=== PATIENT | male | born 1950 | race Caucasian/White ===

== ENCOUNTER 2017-08-10 13:31 | Outpatient (RCR) | payer MEDICARE, OTHER ==
[2015-06-18 13:05] VITALS: BMI 23.0
[~2017-08-10 13:31] MED LIST: ASPI-757 PO; ASPI-879 PO; CALC-515 PO; DOCU-416 PO; ESOM40CA42 PO; FOLI-68 PO; IBUP200C71 PO; LOR5/325 PO; MULT-1335 PO; MULT1TAB64 PO; NO ROUTINE MEDS; OXYB10TA21 PO; OXYB5TAB86 PO; OXYC-865 PO; PHEN200T32 PO
[2017-08-14] MEDS ORDERED: IOPAMIDOL 76% 100 ML INFUS BTL 100 ML ONE (10:54)
[2017-08-14] MEDS ORDERED: NS 0.9% 150 ML BAG 150 ML ONE (11:11)
--- NOTE | 2017-08-14 13:57 | RADIOLOGY IMAGING REPORT ---
FACILITY: [facility] - [place] PATIENT NAME: Paul Sheridan : 1950 MR: [id number] V: [id number] EXAM DATE: ORDERING PHYSICIAN: JIMBO BAILEY TECHNOLOGIST: Location: [facility] - [place] Patient: Paul Sheridan : 1950 Visit/Account:[id number] Date of Sevice: 08/14/2017 ABDOMEN/PELVIS W/WO CONTRAST HISTORY: Microhematuria, transitional cell carcinoma TECHNIQUE: Axial images acquired through the abdomen/pelvis both with and without IV contrast.. Elvira nal and sagittal reformatting also performed. Dose Lowering Technique One of the following dose optimization techniques was utilized in the performance of this exam: Autom ated exposure control; adjustment of the mA and/or kV according to the patient's size; or use of an i terative reconstruction technique. Specific details can be referenced in the facility's radiology C T exam operational policy. CONTRAST: 100 mL Isovue-370 COMPARISON: February 25, 2015 FINDINGS: Visualized lung bases: Incompletely imaged is a small patchy area of airspace consolidation in the i nferior lingula . In the inferior left thorax there is a small amount of thrombus identified in seg mental and subsegmental branches which are presumably arterial branches although are incompletely maki ged Hepatobiliary: 1.7 cm cyst medial segment left lobe the liver again seen Spleen: Negative. Adrenals: There Is mild nodular thickening the adrenal glands Pancreas: Negative. Kidneys ureters and bladder: There are multiple small round hypodensities seen in the kidneys which a re too small to characterize. These could represent cysts although some appear to be increased in si ze. There is a 2 mm nonobstructing calculus lower pole of the left kidney . There is irregular thickeni ng along the anterior dome of the bladder with adjacent coarse calcification. There are several smal l nodules seen along the inferior aspect of the bladder worrisome for bladder tumor recurrence. The previously noted solid hypoattenuating mass projecting just posterior to the pubic symphysis indentin g the anterior aspect of the bladder is no longer seen Genitalia: Negative. GI: Negative. Vessels/spaces/nodes: There are mild vascular calcifications present Bones/soft tissues: Negative. Additional findings: None pertinent. IMPRESSION: There is a small patchy area of airspace consolidation the inferior lingula. This could represent a small area of scarring versus an acute infectious/inflammatory process. A small amount thrombus identified in segmental and subsegmental branches in the left lower lobe whic h are presumably arterial in nature although the thorax is incompletely imaged on this CT of abdomen and pelvis. Findings are consistent with pulmonary emboli. There are multiple small round hypodensities in the kidneys which are too small to characterize. The se could represent cysts although some appear to be increased in size. 2 mm nonobstructing calculus lower pole the left kidney There is irregular thickening along the anterior dome of the bladder with adjacent coarse calcificati on. This could be related to prior treatment although tumor recurrence in this location not excluded There are several additional small soft tissue nodules along the inferior aspect of the bladder worri some for bladder tumor recurrence Previously noted solid hypoattenuating mass just posterior to the pubic symphysis indenting the anter ior aspect the bladder is no longer seen. Results were called to JIMBO BAILEY at 08/14/2017 1:51 PM. Report Dictated By: Kayce Lux MD at 08/14/2017 12:01 PM Report E-Signed By: Kayce Lux MD at 08/14/2017 1:52 PM WSN:[id number]
== END 2017-08-14 18:00 | disposition home or self-care (01) ==
LOC: EDSTATUS 13:31 → CT 13:31
PROVIDERS: ATTEND Urology
DX: N20.0 Calculus of kidney (principal); N32.9 Bladder disorder, unspecified
CPT/HCPCS: 36415; 74178; 82565; Q9967

== ENCOUNTER 2017-08-14 14:40 | Emergency (ER) | payer MEDICARE, OTHER ==
[2015-06-18 13:05] VITALS: Wt 65.1 kg
--- NOTE | 2017-08-14 15:18 | ER Report ---
History and Physical Time Seen By MD: 14:49 Hx. of Stated Complaint: DR CHOUDHARY XRAYED PT THIS MORNING PRE SURGERY AND CALLED PT BACK STATING HE NEEDED TO COME TO er FOR EVAL OF PULMONARY EMBOLISM HPI/ROS CHIEF COMPLAINT: Pulmonary embolus HISTORY OF PRESENT ILLNESS: 66-year-old male with recurrent bladder cancer planning his 3rd surgery with Dr. Choudhary referred here after CT demonstrated pulmonary emboli. Creatinine was checked a few days ago and was fine. Patient states he has no symptoms at this time. Denies chest pain shortness of breath nausea vomiting diaphoresis weakness dizziness or difficulty with daily activities. No other concerns or complaints today. REVIEW OF SYSTEMS: Constitutional: No fever, no chills. Eyes: No discharge. ENT: No sore throat. Cardiovascular: No chest pain, no palpitations. Respiratory: No cough, no shortness of breath. Gastrointestinal: No abdominal pain, no vomiting. Genitourinary: No hematuria. Musculoskeletal: No back pain. Skin: No rashes. Neurological: No headache. Allergies: Coded Allergies: formoterol (Verified Allergy, Unknown, 03/16/17) EHR CONVERSION mometasone furoate (Verified Allergy, Unknown, 03/16/17) EHR CONVERSION Uncoded Allergies: HAYFEVER (Allergy, Mild, UNKNOWN, 11/15/11) STRAWBERRIES (Allergy, Unknown, HIVES, 07/23/14) Home Meds Discontinued Reported Medications Esomeprazole Magnesium (NEXIUM) 40 Mg Capsule.dr, 1 CAP PO QDAY, CAP 03/16/17 Folic Acid (FOLIC ACID) 1 Mg Tablet, 1 MG PO QDAY, TAB 06/10/15 Multivitamin With Minerals (MULTIPLE VITAMIN) 1 Each Tablet, 1 EACH PO DAILY 06/10/15 Aspirin (ASPIRIN) 325 Mg Tablet, 325 MG PO Q4-6H Y for PAIN, TAB 06/10/15 Hx Smoking: Yes (SMOKES A PIPE. 1 TO 2 TIMES PER DAY FOR 30 YEARS) Smoking Status: Current: Every Day Smoker, Light Tobacco Smoker Exposure to Second Hand Smoke?: No Hx Substance Use Disorder: No Hx Alcohol Use: No Constitutional Vital Sign - Last 24 Hours 08/14/17 14:49 Temp 99.8 Pulse 74 Resp 16 B/P (MAP) 141/86 Pulse Ox 85 O2 Delivery Room Air Physical Exam General Appearance: The patient is alert, has no immediate need for airway protection and no signs of toxicity. No acute distress Eyes: Pupils equal and round no pallor or injection. ENT, Mouth: Mucous membranes are moist. Respiratory: There are no retractions, lungs are clear to auscultation. Cardiovascular: Regular rate and rhythm. No murmurs gallops or rubs Gastrointestinal: Abdomen is soft and non tender, no masses, bowel sounds normal. Neurological: Normal gross neuro exam Skin: Warm and dry, no rashes. Musculoskeletal: Neck is supple non tender. Extremities are nontender, nonswollen and have full range of motion. No edema, no calf tenderness bilaterally, negative Homans sign bilaterally. DIFFERENTIAL DIAGNOSIS/MDM: After history and physical exam differential diagnosis was considered for pulmonary embolus as diagnosed by CT scan no signs of other dangerous process at this time. Patient states he is not currently undergoing chemotherapy or radiation therapy. Medical Decision Making Data Points Result Diagram: 08/14/17 1505 08/14/17 1505 Laboratory Hematology Test 08/14/17 15:05 Red Blood Count 5.76 M/uL (4.00-5.60) Mean Corpuscular Volume 102.0 fL (80.0-96.0) Mean Corpuscular Hemoglobin 35.8 pg (26.0-33.0) Mean Corpuscular Hemoglobin Concent 35.1 g/dL (32.0-36.0) Red Cell Distribution Width 13.6 % (11.5-14.5) Mean Platelet Volume 7.7 fL (7.2-11.1) Neutrophils (%) (Auto) 58.2 % (39.4-72.5) Lymphocytes (%) (Auto) 31.6 % (17.6-49.6) Monocytes (%) (Auto) 8.5 % (4.1-12.4) Eosinophils (%) (Auto) 0.7 % (0.4-6.7) Basophils (%) (Auto) 1.0 % (0.3-1.4) Nucleated RBC Relative Count (auto) 0.1 /100WBC Neutrophils # (Auto) 6.1 K/uL (2.0-7.4) Lymphocytes # (Auto) 3.3 K/uL (1.3-3.6) Monocytes # (Auto) 0.9 K/uL (0.3-1.0) Eosinophils # (Auto) 0.1 K/uL (0.0-0.5) Basophils # (Auto) 0.1 K/uL (0.0-0.1) Nucleated RBC Absolute Count (auto) 0.01 K/uL Sodium Level 137 mmol/L (137-145) Potassium Level 4.1 mmol/L (3.5-5.0) Chloride Level 97 mmol/L (98-107) Carbon Dioxide Level 30 mmol/L (22-30) Blood Urea Nitrogen 14 mg/dl (9-21) Creatinine 1.00 mg/dl (0.66-1.25) Glomerular Filtration Rate Calc > 60.0 Random Glucose 101 mg/dl (75-110) Calcium Level 9.2 mg/dl (8.4-10.2) Total Bilirubin 0.9 mg/dl (0.2-1.3) Aspartate Amino Transf (AST/SGOT) 28 U/L (0-35) Alanine Aminotransferase (ALT/SGPT) 39 U/L (0-56) Alkaline Phosphatase 98 U/L (0-126) Troponin I < 0.012 ng/ml B-Type Natriuretic Peptide 21 pg/ml (0-100) Total Protein 7.0 gm/dl (6.3-8.2) Albumin 3.9 g/dl (3.5-5.0) Chemistry Test 08/14/17 15:05 White Blood Count 10.4 k/uL (4.5-11.0) Red Blood Count 5.76 M/uL (4.00-5.60) Hemoglobin 20.7 g/dL (14.0-18.0) Hematocrit 58.8 % (42.0-52.0) Mean Corpuscular Volume 102.0 fL (80.0-96.0) Mean Corpuscular Hemoglobin 35.8 pg (26.0-33.0) Mean Corpuscular Hemoglobin Concent 35.1 g/dL (32.0-36.0) Red Cell Distribution Width 13.6 % (11.5-14.5) Platelet Count 183 K/uL (150-450) Mean Platelet Volume 7.7 fL (7.2-11.1) Neutrophils (%) (Auto) 58.2 % (39.4-72.5) Lymphocytes (%) (Auto) 31.6 % (17.6-49.6) Monocytes (%) (Auto) 8.5 % (4.1-12.4) Eosinophils (%) (Auto) 0.7 % (0.4-6.7) Basophils (%) (Auto) 1.0 % (0.3-1.4) Nucleated RBC Relative Count (auto) 0.1 /100WBC Neutrophils # (Auto) 6.1 K/uL (2.0-7.4) Lymphocytes # (Auto) 3.3 K/uL (1.3-3.6) Monocytes # (Auto) 0.9 K/uL (0.3-1.0) Eosinophils # (Auto) 0.1 K/uL (0.0-0.5) Basophils # (Auto) 0.1 K/uL (0.0-0.1) Nucleated RBC Absolute Count (auto) 0.01 K/uL Glomerular Filtration Rate Calc > 60.0 Calcium Level 9.2 mg/dl (8.4-10.2) Total Bilirubin 0.9 mg/dl (0.2-1.3) Aspartate Amino Transf (AST/SGOT) 28 U/L (0-35) Alanine Aminotransferase (ALT/SGPT) 39 U/L (0-56) Alkaline Phosphatase 98 U/L (0-126) Troponin I < 0.012 ng/ml B-Type Natriuretic Peptide 21 pg/ml (0-100) Total Protein 7.0 gm/dl (6.3-8.2) Albumin 3.9 g/dl (3.5-5.0) EKG/Imaging EKG Interpretation My read 1508 normal sinus rhythm rate of 67 normal SC interval normal QTc interval right bundle-branch block ED Course/Re-evaluation ED Course Plan of care agreed-upon. Consultation was placed to Dr. Daniel Christy who will see the patient in emergency department. Will avoid CTA at this time due to recent dye load for CT abd/pelvis (diagnostic). Plan for outpatient care and follow up for further imaging, xarelto BID; as per Dr. Christy 1st xarelto here. script for xarelto written by Dr. Christy. Re-evaluation stable for discharge; first dose xarelto here; plan for further outpatient imaging will be communicated by Dr. Christy to PCP. Decision to Disposition Date: Aug 14, 2017 Decision to Disposition Time: 17:46 Depart Departure Latest Vital Signs Vital Signs Date Time Temp Pulse Resp B/P (MAP) Pulse Ox O2 Delivery O2 Flow Rate FiO2 08/14/17 14:49 99.8 74 16 141/86 85 Room Air Impression: Primary Impression: Pulmonary embolism Condition: Improved Disposition: HOME OR SELF-CARE Referrals: EMMIE OROZCO (PCP) New Scripts No Active Prescriptions or Reported Meds Patient Instructions: Pulmonary Embolism (GEN) Additional Instructions: Talk to your doctor about getting your CT chest with angiography setup to determine total clot burden. Problem Qualifiers Primary Impression: Pulmonary embolism Pulmonary embolism type: other Chronicity: acute Acute cor pulmonale presence: without acute cor pulmonale Qualified Codes: I26.99 - Other pulmonary embolism without acute cor pulmonale ROBEL MEZA MD Aug 14, 2017 15:18
--- NOTE | 2017-08-14 15:19 | EKG ---
FACILITY: [facility] - [place] PATIENT NAME: CHRISTOPHER JAFFE : [id number] MR: [id number] V: [id number] EXAM DATE: ORDERING PHYSICIAN: ROBEL MEZA TECHNOLOGIST: WOLF Agudelo Reason : POSS PE Blood Pressure : / mmHG Vent. Rate : 067 BPM Atrial Rate : 067 BPM P-R Int : 194 ms QRS Dur : 116 ms QT Int : 418 ms P-R-T Axes : 081 139 071 degrees QTc Int : 441 ms Normal sinus rhythm Pulmonary disease pattern Right bundle branch block Abnormal ECG When compared with ECG of 15-JUN-2015 10:10, Unchanged Confirmed by KAMRAN PATEL ([id number]) on 08/14/2017 4:19:41 PM Referred By: SUSANA Confirmed By:KAMRAN PATEL
[2017-08-14 15:27] LABS: PLATELET COUNT, AUTOMATED 183 K/uL (150-450)
[2017-08-14 17:00] VITALS: BP 121/87
[2017-08-14] MEDS ORDERED: RIVAROXABAN 10 MG TAB PO ONE (17:45)
--- NOTE | 2017-08-14 23:36 | Hospitalist Consultation ---
History of Present Illness Requesting Physician Wager Reason for Consult PE History of Present Illness 66yo male who has h/o of current smoking pipe tobacco, erythrocytosis, and recurrent bladder cancer who sent to the ER because arterial clot was seen in the lung sections of an abdominal CT. The patient denies cp/sob. He doesn't report any LE edema. He only smokes his pipe a couple times a week. He stopped doing phlebotomy for the erythrocytosis awhile ago. History Problems: (1) Bladder cancer Status: Chronic (2) Erythrocytosis Status: Chronic (3) Pipe smoker unmotivated to quit Status: Acute Home Meds Discontinued Reported Medications Esomeprazole Magnesium (NEXIUM) 40 Mg Capsule.dr, 1 CAP PO QDAY, CAP 03/16/17 Folic Acid (FOLIC ACID) 1 Mg Tablet, 1 MG PO QDAY, TAB 06/10/15 Multivitamin With Minerals (MULTIPLE VITAMIN) 1 Each Tablet, 1 EACH PO DAILY 06/10/15 Aspirin (ASPIRIN) 325 Mg Tablet, 325 MG PO Q4-6H Y for PAIN, TAB 06/10/15 Allergies: Coded Allergies: formoterol (Verified Allergy, Unknown, 03/16/17) EHR CONVERSION mometasone furoate (Verified Allergy, Unknown, 03/16/17) EHR CONVERSION Uncoded Allergies: HAYFEVER (Allergy, Mild, UNKNOWN, 11/15/11) STRAWBERRIES (Allergy, Unknown, HIVES, 07/23/14) Patient History: Cancer of digestive system Cancer of digestive system FH: cancer of digestive organ MOTHER, , Age:66, Onset:60 years & older FH: heart attack FATHER, , Age:84, Onset:60 years & older BROTHER OR SISTER, Onset:60 years & older FH: lupus erythematosus BROTHER OR SISTER, Onset:60 years & older FH: prostate cancer FATHER, , Age:84, Onset:60 years & older Hx Smoking: Yes (SMOKES A PIPE. 1 TO 2 TIMES PER DAY FOR 30 YEARS) Smoking Status: Current: Every Day Smoker, Light Tobacco Smoker Exposure to Second Hand Smoke?: No Caffeine Intake: Coffee, Tea, Soda Caffeine/Cups Per Day: 10 CUPS COFFEE PER DAY. OCCASIONAL TEA. 2 CANS SODA PER WEEK Hx Alcohol Use: No Hx Substance Use Disorder: No Social Drug Use: Never Review of Systems All Systems Reviewed/Normal: Yes, Except as Noted Exam Vital Signs Vital Signs Date Time Temp Pulse Resp B/P (MAP) Pulse Ox O2 Delivery O2 Flow Rate FiO2 08/14/17 17:50 ??? 08/14/17 17:05 29 91 08/14/17 17:00 121/87 (98) 08/14/17 16:00 1.0 08/14/17 14:49 99.8 Room Air General Appearance: Alert, Awake, No Acute Distress Neuro: No Gross deficits Eyes: PERRLA Cardiovascular: Regular Rate and Rhythm Respiratory: Clear to Auscultation GI: Abd Soft and Non-Tender Extremities: No Edema Medical Decision Making Data Points Result Diagram: 08/14/17 1505 08/14/17 1505 Item Value Date Time Troponin I < 0.012 ng/ml 08/14/17 1505 B-Type Natriuretic Peptide 21 pg/ml 08/14/17 1505 Aspartate Amino Transf (AST/SGOT) 28 U/L 08/14/17 1505 Alanine Aminotransferase (ALT/SGPT) 39 U/L 08/14/17 1505 Alkaline Phosphatase 98 U/L 08/14/17 1505 Total Bilirubin 0.9 mg/dl 08/14/17 1505 EKG / Imaging Imaging Abd/Pelvis CT - There is a small patchy area of airspace consolidation the inferior lingula. This could represent a small area of scarring versus an acute infectious/inflammatory process. A small amount thrombus identified in segmental and subsegmental branches in the left lower lobe which are presumably arterial in nature although the thorax is incompletely imaged on this CT of abdomen and pelvis. Findings are consistent with pulmonary emboli. There are multiple small round hypodensities in the kidneys which are too small to characterize. These could represent cysts although some appear to be increased in size. 2 mm nonobstructing calculus lower pole the left kidney There is irregular thickening along the anterior dome of the bladder with adjacent coarse calcification. This could be related to prior treatment although tumor recurrence in this location not excluded There are several additional small soft tissue nodules along the inferior aspect of the bladder worrisome for bladder tumor recurrence Previously noted solid hypoattenuating mass just posterior to the pubic symphysis indenting the anterior aspect the bladder is no longer seen. Assessment and Plan Problems: (1) Pulmonary embolism Status: Acute Assessment & Plan: This was found incidentally on an abd/pelvis contrasted CT. There was small amount of thrombus identified in the LLL. He denies SOB or CP. He is not hypoxic and his BP/P are stable. It is unknown how long he has had the clots. He wants to go home. He is willing to pay for Xarelto (we called [facility] and got the cost), so was given a dose in the ER and sent home with a script. He should get a formal CTA of the chest to fully evaluate for PE in the next couple of days. Because he already had contrast, it was not done in the ER. Also, he should follow up with a Bandage Winding Machine Operator to formally evaluate his risks and predispositions for PE. They could also give a timeline on when he would be safe to go off anticoagulation to undergo the surgery for the bladder cancer. Copies to: EMMIE OROZCO; JIMBO BAILEY MD; ROBEL MEZA MD Venous Thromboembolism Antithrombotics Is Pt On Any Antithrombotics?: No Exam Sepsis Risk: No Definite Risk KAMRAN PATEL MD Aug 14, 2017 23:36
== END 2017-08-14 18:01 | disposition home or self-care (01) ==
LOC: ER 14:54
DX: I26.99 Other pulmonary embolism without acute cor pulmonale (principal); R94.31 Abnormal electrocardiogram [ECG] [EKG]; I45.10 Unspecified right bundle-branch block; F17.290 Nicotine dependence, other tobacco product, uncomplicated; D75.1 Secondary polycythemia; C67.9 Malignant neoplasm of bladder, unspecified
CPT/HCPCS: 74178; 83880; 84484; 85025; 93005; 99284; A9270; Q9967; 82040; 82247; 82310; 82374; 82435; 82565; 82947; 84075; 84132; 84155; 84295; 84450; 84460; 84520

== ENCOUNTER → 2017-08-21 | Outpatient (CLI) | payer MEDICARE, OTHER ==
[2015-06-18 13:05] VITALS: BMI 23.0
[~2017-08-21] MED LIST changes: +IOPAMIDOL 76% 75 ML INFUS BTL 75 ML ONE
--- NOTE | 2017-08-21 16:21 | RADIOLOGY IMAGING REPORT ---
FACILITY: [facility] PATIENT NAME: Paul Sheridan : 1950 MR: [id number] V: [id number] EXAM DATE: ORDERING PHYSICIAN: EMMIE OROZCO TECHNOLOGIST: Location: [facility] Patient: Paul Sheridan : 1950 Visit/Account:[id number] Date of Sevice: 08/21/2017 CTA CHEST WW/O CNTR (PULM ANG) HISTORY: Chest pain, left lower lobe pulmonary embolism ADDITIONAL HISTORY: None. TECHNIQUE: CTA chest with intravenous contrast. Axial imaging acquired following administration of IV contrast timed for maximum opacification of the pulmonary arterial vasculature. Slab 3-D MIP sathya nstructed images were also created for further evaluation and interpretation. Reconstruction of the [facility] data set includes multiplanar 2-D in the sagittal and coronal planes and 3-D reconstructed kimmy nal slab MIP series. 3-D images were created by the technologist. Dose Lowering Technique One of the following dose optimization techniques was utilized in the performance of this exam: Autom ated exposure control; adjustment of the mA and/or kV according to the patient's size; or use of an i terative reconstruction technique. Specific details can be referenced in the facility's radiology C T exam operational policy. CONTRAST: 75 mL Isovue-370 COMPARISON: CT abdomen and pelvis August 14, 2017 FINDINGS: Lungs/pleura: There is a 4 mm noncalcified pulmonary nodule in the inferior right lower lobe best se en on image 85 of series 5. There is a 4 mm noncalcified pulmonary nodule inferior aspect right lowe r lobe best seen on image 86 . Heart/vessels: There is thrombus identified in the lobar, segmental and subsegmental arterial branch es to the left lower lobe.. The transverse diameter of the right interlobar pulmonary artery measures 2.4 cm in diameter with gre ater than 16 mm being enlarged. The main pulmonary artery measures 3.7 cm in diameter within normal transverse diameter measuring less than 2.86 cm. The basilar segmental arteries to the lower lobes a lso are dilated. Mediastinum/lymph nodes: Negative. Visualized upper abdomen: 1.7 cm cyst medial segment left lobe the liver. Mild lobular thickening o f the adrenal glands Bones/soft tissues: Negative. Additional findings: None IMPRESSION: There is thrombus in the lobar, segmental and subsegmental arterial branches to the left lower lobe There is enlargement of the main pulmonary artery, the right intralobar pulmonary artery and the basi lar segmental arteries to the lower lobes concerning for pulmonary arterial hypertension. Pre- Two 4 mm noncalcified pulmonary nodules in the right lower lobe For multiple nodules measuring less t richard 6 mm, in a low risk patient (minimal or absent smoking history, no history of malignancy), no rou kailash followup is recommended. In a high risk patient (smoking or malignancy history), optional 12 mon th followup can be obtained. Report Dictated By: Kayce Lux MD at 08/21/2017 3:56 PM Report E-Signed By: Kayce Lux MD at 08/21/2017 4:17 PM WSN:[email or web address]
== END ==
LOC: CT 07:12
PROVIDERS: ATTEND Nurse Practitioner Family
DX: I26.99 Other pulmonary embolism without acute cor pulmonale (principal); R91.8 Other nonspecific abnormal finding of lung field
CPT/HCPCS: 71275; Q9967

== ENCOUNTER 2017-10-16 08:00 | Outpatient (RCR) | payer MEDICARE, OTHER ==
[2015-06-18 13:05] VITALS: Ht 170.2 cm; Wt 60.8 kg
[~2017-10-16] VITALS: Ht 170.2 cm; Wt 60.8 kg
[~2017-10-16 08:00] MED LIST changes: -IOPAMIDOL 76% 75 ML INFUS BTL 75 ML ONE; +RIVA20TA PO
[2017-10-19 12:31] LABS: PLATELET COUNT, AUTOMATED 181 K/uL (150-450)
[2017-10-19 12:40] LABS: INR 1.08
--- NOTE | 2017-10-19 15:06 | HISTORY AND PHYSICAL ---
DATE OF ADMISSION: October 22, 2017 CHIEF COMPLAINT Bladder cancer. HISTORY OF PRESENT ILLNESS Patient is a 66-year-old white male who was originally referred to the Urology Clinic for microscopic hematuria in the fall of 2015. 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 Followup cystoscopy in the office revealed dystrophic calcification at the area of TUR healing; however, he was also noted to have some papillary changes at the edges of this TUR site, and he was returned to the operating room June. At that time, he underwent a cystoscopy with biopsy of these sites as well as intravesical instillation of mitomycin-C. His pathology returned acute and chronic inflammation with granulation tissue with no evidence of malignancy. He has been followed in the Urology Clinic with periodic surveillance of cystoscopies. At his last visit in July, he was noted to have two small papillary growths around the bladder neck consistent with recurrence. A CT urogram was performed which did not reveal any evidence of upper tract tumors; however, he was noted to have a 2 mm left lower pole kidney stone. His bladder was thickened at the area of dystrophic calcification from his prior biopsy site, but no significant change. He was also noted to have a questionable PE and was evaluated by the hospitalist service as outpatient and recommended the patient undergo treatment with Xarelto. Since that time, he has been seen by Hem/Onc by Dr. Trenton Paz for his pulmonary embolism, and he suggested he stop his Xarelto three days before his procedure and to resume it the day after the procedure. He is also being followed for polycythemia with the recommendation of a phlebotomy when the hematocrit is above 45%. The patient is now being brought to the operating room for planned anesthetic cystoscopy and bladder biopsy of lesions. He has also been consented for possible transurethral resection of his prostate if the tumors are inaccessible given their location in the bladder neck. PAST MEDICAL HISTORY * Homocysteinemia. * Polycythemia. * Hemochromatosis. * Pulmonary embolism. * Kidney stones. * Bladder cancer. PAST SURGICAL HISTORY * Colonoscopy 2004. * Transurethral resection of bladder tumor February 2015. * Bladder biopsy with mitomycin instillation June 2015. CURRENT MEDICATIONS * Xarelto. * Multivitamins. ALLERGIES No known drug allergies. FAMILY HISTORY Noncontributory. REVIEW OF SYSTEMS Patient denies chest pain, productive cough, fever, chills, nausea, vomiting, flank pain, or change in weight. PHYSICAL EXAMINATION GENERAL: Patient is a well-developed, well-nourished, white male in no acute distress. HEENT: Normocephalic, atraumatic. CHEST: Clear to auscultation bilaterally. CARDIOVASCULAR: Regular rate and rhythm. ABDOMEN: Soft, nontender. No masses are palpated. GENITOURINARY: Deferred to the OR. EXTREMITIES: Without clubbing, cyanosis, or edema. NEUROLOGIC: Nonfocal. IMPRESSION * A 66-year-old white male with recurrent papillary lesions with history of bladder cancer. PLAN We will perform anesthetic cystoscopy, transurethral resection or biopsy of the lesion with possible TUR of the prostate to aid in access of lesions as needed. CLAYTOND
[2017-10-22] MEDS: FAMOTIDINE 20 MG TAB PO ONE ×2 (10:29→11:01)
[2017-10-22] MEDS ORDERED: FAMOTIDINE(*) 20MG/50ML PREMIX 50 ML IVPB ONE (10:49)
[2017-10-22 10:57] LABS: INR 1.02
[2017-10-22 11:00] VITALS: BP 121/85
[2017-10-22] MEDS ORDERED: LEVOFLOXACIN/D5W*500 MG/100 ML 100 ML IVPB ONE (11:05)
[2017-10-22] MEDS ORDERED: NORMOSOL R SOLN(*) 1000 ML BAG 1,000 ML IV PRN (11:05)
[2017-10-22] MEDS ORDERED: MIDAZOLAM 2 MG/2 ML VIAL IVP PRN (11:05)
[2017-10-22] MEDS ORDERED: LIDOCAINE/SOD BICARB 8.4% SYR ID ONE (11:05)
== END 2017-10-22 18:00 | disposition home or self-care (01) ==
LOC: LAB 08:00 → OR 10-22 01:17 → EDSTATUS 10-22 12:05 → LAB 10-22 18:00
PROVIDERS: ATTEND Urology
DX: C67.9 Malignant neoplasm of bladder, unspecified (principal); D75.1 Secondary polycythemia; E83.119 Hemochromatosis, unspecified; E72.11 Homocystinuria; Z87.442 Personal history of urinary calculi; Z85.51 Personal history of malignant neoplasm of bladder; Z86.711 Personal history of pulmonary embolism; Z79.01 Long term (current) use of anticoagulants
CPT/HCPCS: 36415; 81001; 85025; 85610; 85730; 87088; J1956; J3490; 82040; 82247; 82310; 82374; 82435; 82565; 82947; 84075; 84132; 84155; 84295; 84450; 84460; 84520

== ENCOUNTER → 2017-11-14 | Outpatient (RCR) | payer MEDICARE, OTHER ==
[2015-06-18 13:05] VITALS: Ht 165.1 cm; Wt 64.3 kg
[2017-08-16 14:56] VITALS: BP 131/86
--- NOTE | 2017-08-17 10:07 | ONCOLOGY FOLLOW UP NOTE ---
EVENT DATE: August 16, 2017 DIAGNOSES 1. Hemochromatosis. 2. Erythrocytosis. 3. Homocystinemia. CHIEF COMPLAINT Patient is here today for followup of his hemachromatosis and erythrocytosis, and recent diagnosis of pulmonary embolus. HISTORY OF PRESENT ILLNESS Patient is 66-year-old male who was followed for polycythemia. His JAK2 was mildly positive. Patient was also found to have macrocytosis and he has homocystinemia as well. He was maintained on phlebotomies in the past. He had an ultrasound in 2014 which showed gallbladder sludge. He has also hypoxemia at night. His polycythemia appeared to be multifactorial with nocturnal hypoxemia and JAK2 mutation positive myeloproliferative disorder. He was also diagnosed with bladder cancer superficial, treated by Dr. Choudhary. He has been seen by Dr. Choudhary recently and he had a CT abdomen and pelvis done on August 14, 2017, which incidentally found a left lower lobe pulmonary embolism in the segmental and subsegmental arteries. Patient started treatment with Xarelto 15 mg twice daily for three weeks, then 20 mg daily after that. Patient is planned to have surgical procedure by Dr. Choudhary. PAST MEDICAL HISTORY 1. History of colonic polyps. 2. Homocystinemia. 3. Hemochromatosis. 4. JAK2 mutation positive erythrocytosis. 5. Pulmonary embolism diagnosed August 14, 2017. PAST SURGICAL HISTORY 1. Tonsillectomy. 2. Hand surgery. SOCIAL HISTORY Patient is single with no children. 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 Denies any abuse of alcohol or illicit drugs. SOCIAL HISTORY Father had prostate cancer. ALLERGIES No known drug allergies. REVIEW OF SYSTEMS CONSTITUTIONAL: No appetite or weight change. No fever, chills or sweating. No recent infection. HEENT: Ears: No tinnitus or hearing problem. Nose: No nasal discharge or epistaxis. Throat: No sore throat or mouth ulcers. Eyes: No diplopia or visual changes. RESPIRATORY: No shortness of breath. No cough, expectoration or hemoptysis. CARDIOVASCULAR: No chest pain, orthopnea, or paroxysmal nocturnal dyspnea (PND) . No edema. No palpitations. GASTROINTESTINAL: No nausea or vomiting. No diarrhea or constipation. No change in bowel movements. No heartburn or swallowing difficulties. No abdominal pain. No jaundice. No hematemesis, melena or rectal bleeding. GENITOURINARY: No hematuria or dysuria. MUSCULOSKELETAL: No pain in the muscles, joints or bones. NEUROLOGICAL: No tingling or numbness in the hands or feet. No convulsions. The patient has occasional headache. HEMATOLOGIC/LYMPHATIC: No bleeding or easy bruising. No weakness or fatigue. No enlarged lymph nodes. SKIN: No skin rash or lumps. PSYCHIATRIC: No anxiety or depression. PHYSICAL EXAMINATION GENERAL: Looks stable. Well-developed, well-nourished, and in no acute distress. VITAL SIGNS: Blood pressure 131/86, pulse 68 per minute, respirations 16 per minute, temperature 98.2, pulse ox 90% on room air. HEENT: Head: Atraumatic. No sinus tenderness to palpation. Eyes: No icterus or conjunctivitis. Mouth and throat: No oral thrush or mucositis. NECK: Supple. No cervical or supraclavicular lymphadenopathy. LUNGS: Clear to auscultation and percussion bilaterally. HEART: Regular rate and rhythm. No gallops, murmurs, clicks or rubs. ABDOMEN: Soft and lax. No tenderness. No hepatosplenomegaly. No masses. EXTREMITIES: No cyanosis, clubbing or edema. LYMPHATICS: No peripheral lymphadenopathy. NEUROLOGICAL: Conscious, alert and oriented times three. No focal motor or sensory deficits. PSYCHIATRIC: Mood and affect appear normal. SKIN: No skin rash, bruise or purpuric eruption. DIAGNOSTIC DATA CBC showed white count 10.4, hemoglobin 20.7, hematocrit 58.8, platelets 183, 000. ASSESSMENT 1. Pulmonary embolism involving the left lower lobe and the segmental and subsegmental arteries. Patient started Xarelto 15 mg twice daily for three weeks, started on August 14, 2017, to be followed after three weeks by Xarelto 20 mg once daily for a total of six months. Patient is planned to have surgery by Dr. Choudhary, his urologist with cystoscopy for his superficial bladder cancer, and I am planning to adjust his anticoagulation during the perioperative period. We are going to have the procedure done at least six weeks after his diagnosis of pulmonary embolism. 2. 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 It was low level at 3.66%. His current hematocrit 58.8%, and our target for phlebotomy if the hematocrit above 45%. I am planning to have phlebotomy done and the patient is arranging to have the phlebotomy done tomorrow. 3. Homocystinemia. His homocysteine level initially was 17, and the patient has started folic acid on July 23, 2014. 4. Superficial bladder cancer. Patient is followed by Dr. Choudhayr. He had TURBT for bladder cancer times three in 2014. The patient recently found to have one and he is going to have surgery soon, at least six weeks after the diagnosis of his pulmonary embolism. He received mitomycin C intravesical chemotherapy in the past. We are going to call Dr. Choudhary regarding the management of his anticoagulation during the perioperative period. PLAN 1. Check iron studies with ferritin. 2. Check fasting homocysteine level. 3. Continue folic acid supplement. 4. Xarelto 15 mg twice daily for three weeks to be followed by 20 mg once daily for a total of six months. 5. Patient to return in five weeks prior to his surgery to adjust his anticoagulation during the perioperative period. 6. Phlebotomy 500 mL of blood, maybe every week or every two based on his iron studies. 7. Patient is to contact us for any new concerns or complaints. DORYS
[2017-08-17 16:47] VITALS: BP 129/78
[2017-09-20 14:52] VITALS: BP 126/74
[2017-09-20 15:21] LABS: PLATELET COUNT, AUTOMATED 154 K/uL (150-450)
--- NOTE | 2017-09-20 20:34 | ONCOLOGY FOLLOW UP NOTE ---
EVENT DATE: September 20, 2017 DIAGNOSES 1. Hemochromatosis. 2. Erythrocytosis. 3. Homocystinemia. CHIEF COMPLAINT Patient is here today for followup of his hemochromatosis and erythrocytosis, and pulmonary embolism. HEMATOLOGY HISTORY Patient is 66-year-old male who was followed for polycythemia. His JAK2 was mildly positive. Patient was also found to have macrocytosis and he has homocystinemia as well. He was maintained on phlebotomies in the past. He had an ultrasound in 2014 which showed gallbladder sludge. He has also hypoxemia at night. His polycythemia appeared to be multifactorial with nocturnal hypoxemia and JAK2 mutation positive myeloproliferative disorder. He was also diagnosed with bladder cancer superficial, treated by Dr. Choudhary. He has been seen by Dr. Choudhary recently and he had a CT abdomen and pelvis done on August 14, 2017, which incidentally found a left lower lobe pulmonary embolism in the segmental and subsegmental arteries. Patient started treatment with Xarelto 15 mg twice daily for three weeks, then 20 mg daily after that. Patient is planned to have surgical procedure by Dr. Choudhary. HISTORY OF PRESENT ILLNESS Patient is here today for followup of his erythrocytosis, hemochromatosis and pulmonary embolism. He is complaining of pain at the bottom of his feet sometimes, but other than that he is really doing very well. PAST MEDICAL HISTORY 1. History of colonic polyps. 2. Homocystinemia. 3. Hemochromatosis. 4. JAK2 mutation positive erythrocytosis. 5. Pulmonary embolism diagnosed August 14, 2017. PAST SURGICAL HISTORY 1. Tonsillectomy. 2. Hand surgery. SOCIAL HISTORY Patient is single with no children. 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. 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 Denies any abuse of alcohol or illicit drugs. SOCIAL HISTORY Father had prostate cancer. ALLERGIES No known drug allergies. REVIEW OF SYSTEMS CONSTITUTIONAL: No appetite or weight change. No fever, chills or sweating. No recent infection. HEENT: Ears: No tinnitus or hearing problem. Nose: No nasal discharge or epistaxis. Throat: No sore throat or mouth ulcers. Eyes: No diplopia or visual changes. RESPIRATORY: No shortness of breath. No cough, expectoration or hemoptysis. CARDIOVASCULAR: No chest pain, orthopnea, or paroxysmal nocturnal dyspnea (PND) . No edema. No palpitations. GASTROINTESTINAL: No nausea or vomiting. No diarrhea or constipation. No change in bowel movements. No heartburn or swallowing difficulties. No abdominal pain. No jaundice. No hematemesis, melena or rectal bleeding. GENITOURINARY: No hematuria or dysuria. MUSCULOSKELETAL: He has pain at the bottom of his feet. NEUROLOGICAL: No tingling or numbness in the hands or feet. No convulsions. The patient has occasional headache. HEMATOLOGIC/LYMPHATIC: No bleeding or easy bruising. No weakness or fatigue. No enlarged lymph nodes. SKIN: No skin rash or lumps. PSYCHIATRIC: No anxiety or depression. PHYSICAL EXAMINATION GENERAL: Looks stable. Well-developed, well-nourished, and in no acute distress. VITAL SIGNS: Blood pressure 126/74, pulse 72 per minute, respirations 16 per minute, temperature 97.6, pulse ox 90% on room air. HEENT: Head: Atraumatic. No sinus tenderness to palpation. Eyes: No icterus or conjunctivitis. Mouth and throat: No oral thrush or mucositis. NECK: Supple. No cervical or supraclavicular lymphadenopathy. LUNGS: Clear to auscultation and percussion bilaterally. HEART: Regular rate and rhythm. No gallops, murmurs, clicks or rubs. ABDOMEN: Soft and lax. No tenderness. No hepatosplenomegaly. No masses. EXTREMITIES: No cyanosis, clubbing or edema. LYMPHATICS: No peripheral lymphadenopathy. NEUROLOGICAL: Conscious, alert and oriented times three. No focal motor or sensory deficits. PSYCHIATRIC: Mood and affect appear normal. SKIN: No skin rash, bruise or purpuric eruption. DIAGNOSTIC DATA CBC showed white count 7.9, hemoglobin 20.2, hematocrit 58.9, platelets 147, 000. Serum iron 114, TIBC 311, iron saturation 36.7 and ferritin 136. Homocysteine was 13. ASSESSMENT 1. Pulmonary embolism involving the left lower lobe and segmental and subsegmental arteries. Patient started Xarelto 15 mg twice daily for three weeks, August 14, 2017, to be followed by Xarelto 20 mg daily after that for a total of six months. Patient is planned to have surgery with Dr. Choudhary, his urologist, with cystoscopy for his superficial bladder cancer. Patient can go for surgery now, but he will stop Xarelto three days before the procedure, and he will resume Xarelto the day after the procedure. 2. 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 I am planning to check his CBC today and if his hematocrit is above 45%, I am planning to phlebotomize 500 mL of blood. 3. Homocystinemia. His homocysteine level initially was 17. The patient started folic acid July 23, 2014. His current homocysteine level was 13. 4. Superficial bladder cancer. Patient was advised to contact Dr. Choudhary to have the appointment for his surgery, and was advised also to stop Xarelto three days before surgery, and to resume it 24 hours after surgery. PLAN 1. Check CBC today. 2. Stop Xarelto three days prior to surgery and resume it one day after surgery. 3. Phlebotomize 500 mL blood if hematocrit is above 45%. 4. Continue Xarelto 20 mg daily for a total of six months. 5. Patient to return in three months with CBC and homocysteine level at that time. 6. Patient is to contact us for any new concerns or complaints. DORYS
[2017-11-07 10:30] VITALS: BP 125/75
[2017-11-07 10:36] LABS: PLATELET COUNT, AUTOMATED 172 K/uL (150-450)
[2017-11-07 11:30] VITALS: BP 113/76
[~2017-11-14] VITALS: Ht 165.1 cm; Wt 64.3 kg
[~2017-11-14] MED LIST changes: +DEXTROSE 5%(*) 100 ML BAG 100 ML IVPB PRN; +LIDOCAINE/SOD BICARB 8.4% SYR ID PRN; +NS(*) 0.9% 100 ML BAG 100 ML IVPB PRN
[2017-11-14 13:40] VITALS: BP 113/68
[2017-11-14 14:23] VITALS: BP 109/74
== END ==
LOC: SPU 07-31 07:53 → ONC 08-16 07:38 → SPU 08-17 09:56 → ONC 09-20 14:46 → SPU 11-07 09:52
PROVIDERS: ATTEND Nurse Practitioner Family
DX: I26.99 Other pulmonary embolism without acute cor pulmonale (principal); Z79.01 Long term (current) use of anticoagulants; E72.11 Homocystinuria; C67.9 Malignant neoplasm of bladder, unspecified; F17.290 Nicotine dependence, other tobacco product, uncomplicated; Z92.21 Personal history of antineoplastic chemotherapy; D75.1 Secondary polycythemia; E83.119 Hemochromatosis, unspecified
CPT/HCPCS: 36415; 82728; 83090; 83540; 83550; 85014; 85025; 85027; 99195; G0463; 99212

== ENCOUNTER → 2017-11-22 | Outpatient (CLI) | payer MEDICARE, OTHER ==
[2015-06-18 13:05] VITALS: BMI 23.0
[~2017-11-22] MED LIST changes: -DEXTROSE 5%(*) 100 ML BAG 100 ML IVPB PRN; -LIDOCAINE/SOD BICARB 8.4% SYR ID PRN; -NS(*) 0.9% 100 ML BAG 100 ML IVPB PRN
[2017-11-22 13:55] VITALS: BP 113/71
== END ==
LOC: SPU 11-21 13:55
PROVIDERS: ATTEND Nurse Practitioner Family
DX: D75.1 Secondary polycythemia (principal)
CPT/HCPCS: 36415; 85014

== ENCOUNTER 2017-11-28 13:52 | Outpatient (RCR) | payer MEDICARE, OTHER ==
[2015-06-18 13:05] VITALS: BMI 23.0
[2017-11-21 14:23] VITALS: BP 118/71
[2017-11-21 14:54] VITALS: BP 105/72
[2017-11-28 14:42] VITALS: BP 110/73
== END 2017-11-30 12:41 | disposition home or self-care (01) ==
LOC: SPU 13:52
PROVIDERS: ATTEND Nurse Practitioner Family
DX: D75.1 Secondary polycythemia (principal)
CPT/HCPCS: 85014; 85027; 99195

== ENCOUNTER → 2017-11-29 | Outpatient (CLI) | payer MEDICARE, OTHER ==
[2015-06-18 13:05] VITALS: BMI 23.0
[2017-11-29 13:51] VITALS: BP 103/70
== END ==
LOC: SPU 07:43
PROVIDERS: ATTEND Nurse Practitioner Family
DX: D75.1 Secondary polycythemia (principal)
CPT/HCPCS: 36415; 85014

== ENCOUNTER → 2017-12-24 | Outpatient (CLI) | payer MEDICARE, OTHER ==
[2015-06-18 13:05] VITALS: BMI 23.0
[~2017-12-24] MED LIST changes: +IBUP-136 PO; -IBUP200C71 PO
[2017-12-24 11:18] LABS: PLATELET COUNT, AUTOMATED 223 K/uL (150-450)
[2017-12-24 11:28] LABS: INR 1.03
== END ==
LOC: SPU 12-06 07:46
PROVIDERS: ATTEND Nurse Practitioner Family
DX: Z01.812 Encounter for preprocedural laboratory examination (principal); Z01.818 Encounter for other preprocedural examination
CPT/HCPCS: 81001; 82040; 82247; 82310; 82374; 82435; 82565; 82947; 84075; 84132; 84155; 84295; 84450; 84460; 84520; 85025; 85610; 85730; 87088

== ENCOUNTER → 2017-12-25 | Outpatient (CLI) | payer MEDICARE, OTHER ==
[2015-06-18 13:05] VITALS: BMI 23.0
== END ==
LOC: SPU 07:45
PROVIDERS: ATTEND Nurse Practitioner Family
DX: D75.1 Secondary polycythemia (principal)
CPT/HCPCS: 36415; 85014

== ENCOUNTER 2017-12-27 00:12 | Observation (INO) | payer MEDICARE, OTHER ==
--- NOTE | 2017-12-26 19:16 | HISTORY AND PHYSICAL ---
DATE OF ADMISSION: December 27, 2017 CHIEF COMPLAINT Bladder cancer. HISTORY OF PRESENT ILLNESS Patient is a 67-year-old white male who was recently found to have a 1.5 cm papillary bladder tumor on the left anterior aspect of his bladder which returned a G1, Ta transitional cell carcinoma. In followup office cystoscopy, he was noted to have some dystrophic calcification at the site of the TUR area. He was also noted to have some papillary changes around this site. He was returned to the operating room in June and underwent biopsy of these sites as well as mitomycin-C instillation. His pathology returned negative for cancer. It was only consistent with inflammation. His most recent cystoscopy in the office at the end of July showed some small papillary tumors at the anterior bladder neck area. He had been originally scheduled to undergo TUR in October; however, he was found to be significantly hypoxic and had an elevated hematocrit secondary to his polycythemia. This has been corrected by his primary care team as well as the Hem/Onc physicians. He is now being brought to the operating room for planned anesthetic cystoscopy with transurethral resection of these tumors. He also understands that if these are significantly anterior, we may need to do some resection of the prostate to obtain access to these anterior tumors. PAST MEDICAL HISTORY * Homocysteine anemia. * Polycythemia. * Hemochromatosis. * Pulmonary embolism. * Kidney stone. * Bladder cancer. * Hypoxia. PAST SURGICAL HISTORY * Colonoscopy 2004. * Transurethral resection of bladder tumor February 2015. * Cystoscopy with bladder biopsy and mitomycin instillation June 2015. CURRENT MEDICATIONS * Multivitamins. * Xarelto. ALLERGIES No known drug allergies. FAMILY HISTORY Noncontributory. REVIEW OF SYSTEMS Patient denies chest pain, shortness of breath, nausea, vomiting, fever, chills , chronic headaches, or liver disease. PHYSICAL EXAMINATION GENERAL: Patient is a well-developed, well-nourished, white male in no acute distress. HEENT: Normocephalic, atraumatic. CHEST: Clear to auscultation bilaterally. CARDIOVASCULAR: Regular rate and rhythm. ABDOMEN: Soft, nontender. No masses are palpated. GENITOURINARY: Deferred to the OR. EXTREMITIES: Without clubbing, cyanosis, or edema. NEUROLOGIC: Nonfocal. IMPRESSION A 67-year-old white male with recurrent papillary lesions in the anterior bladder with a history of bladder cancer. PLAN We will perform anesthetic cystoscopy with transurethral resection or biopsy of these lesions. MTDD
[2017-12-27] VITALS (15 sets, daily range): BP systolic 87–121; BP diastolic 53–77
[~2017-12-27] VITALS: Ht 170.2 cm; Wt 61.0 kg
[2017-12-27] MEDS ORDERED: MIDAZOLAM 2 MG/2 ML VIAL IVP PRN (08:30)
[2017-12-27] MEDS ORDERED: NORMOSOL R SOLN(*) 1000 ML BAG 1,000 ML IV PRN (08:30)
[2017-12-27] MEDS ORDERED: FAMOTIDINE 20 MG TAB PO ONE (08:30)
[2017-12-27] MEDS ORDERED: ceFAZolin(*) 1 GM VIAL 1 GM in NS(*) 0.9% 100 ML ADDVANT BAG 100 ML IVPB ONE (08:30)
[2017-12-27] MEDS ORDERED: LIDOCAINE/SOD BICARB 8.4% SYR ID ONE (08:30)
[2017-12-27] MEDS ORDERED: ALBUTEROL/IPRATROPIUM 3 ML NEB ONE (09:21)
--- NOTE | 2017-12-27 09:21 | RADIOLOGY IMAGING REPORT ---
FACILITY: [facility] PATIENT NAME: Paul Sheridan : 1950 MR: [id number] V: [id number] EXAM DATE: ORDERING PHYSICIAN: HANNA STOCKTON TECHNOLOGIST: [place] [facility] [place] Patient: Paul [place] : 1950 Visit/Account:[id number] Date of Sevice: 12/27/2017 CHEST PA AND LAT COMPARISON: June 15, 2015 HISTORY: EXPIRATORY WHEEZES LUNGS DIMINISHED . Smoker, wheezing, preoperative assessment. FINDINGS: CARDIAC/VASC: No cardiac silhouette abnormality or cardiomegaly. Unremarkable pulmonary vasculatu re. MEDIASTINUM: No visible mass or adenopathy. Symmetric enlargement of the main, and right and left pu lmonary arteries which remains suspicious for/most consistent with pulmonary artery hypertension. LUNGS/PLEURA: No pneumothorax. Mildly hyperinflated lungs, chronic and stable. No significant pulmon hung parenchymal abnormalities. No effusion or pleural thickening. BONES: No fracture or visible bony lesion. OTHER:Negative. IMPRESSION: 1. No acute cardiopulmonary process or change from 2016. 2. Symmetrically enlarged pulmonary arteries, again suspicious for/most consistent with pulmonary ar max hypertension. 3. Mildly hyperinflated lungs, suggestive of COPD. Report Dictated By: Blade Hairston at 12/27/2017 9:14 AM Report E-Signed By: Blade Hairston at 12/27/2017 9:17 AM WSN:[id number]
[2017-12-27] MEDS ORDERED: ONDANSETRON 4 MG/2 ML VIAL ONE (09:48)
[2017-12-27] MEDS ORDERED: DEXAMETHASONE SOD PHOS 10MG/ML ONE (09:48)
[2017-12-27] MEDS ORDERED: PROPOFOL EMUL(*) 10MG/ML 20 ML 20 ML ONE (09:48)
[2017-12-27] MEDS ORDERED: fentaNYL CITR 100 MCG/2 ML AMP ONE ×3 (09:59→12:04)
[2017-12-27] MEDS ORDERED: ROCURONIUM BROM 10 MG/ML 10 ML ONE (10:18)
[2017-12-27] MEDS ORDERED: SUGAMMADEX SOD 200 MG/2 ML SDV ONE (10:24)
[2017-12-27] MEDS ORDERED: SUGAMMADEX SOD 500 MG/5 ML SDV ONE (10:24)
[2017-12-27] MEDS ORDERED: MANNITOL IR ONE (10:27)
[2017-12-27] MEDS ORDERED: SORBITOL IR ONE (10:27)
[2017-12-27] MEDS ORDERED: BELLADONNA ALK/OPIUM 60MG SUPP PR ONE ×2 (10:33→11:10)
[2017-12-27] MEDS ORDERED: NORMOSOL R SOLN(*) 1000 ML BAG 1,000 ML IV ONE (11:10)
[2017-12-27] MEDS ORDERED: NS 0.9% 3000 ML IRRIGATION BAG 3,000 ML IR PRN (11:15)
[2017-12-27] MEDS ORDERED: NS(*) 0.9% 1000 ML BAG 1,000 ML IV PRN (11:15)
[2017-12-27] MEDS ORDERED: BELLADONNA ALK/OPIUM 60MG SUPP PR PRN (11:20)
[2017-12-27] MEDS ORDERED: MAG HYD/AL HYD/SIMETH 30ML UDC PO PRN (11:20)
--- NOTE | 2017-12-27 15:27 | OPERATIVE REPORT 1 ---
EVENT DATE: December 27, 2017 SURGEON: Obed Choudhary MD ANESTHESIOLOGIST: Shorty Taylor MD ANESTHESIA: General anesthetic. PREOPERATIVE DIAGNOSIS Recurrent bladder cancer. POSTOPERATIVE DIAGNOSES 1. Recurrent papillary bladder tumors times 11, ranging from 0.5 to 1.5 cm, primarily on bladder lateral floors. 2. Prior anterior wall transurethral resection site dystrophic calcifications. PROCEDURES PERFORMED 1. Cystoscopy. 2. Transurethral resection of bladder tumor times 11, ranging from 0.5 to 1.5 cm. 3. Blunt debridement of dystrophic calcification from anterior posterior wall prior transurethral resection site. ESTIMATED BLOOD LOSS 5 mL PATHOLOGY 1. Left posterior floor tumors. 2. Right posterior floor tumors. 3. Dystrophic calcifications. Sent in separate containers. DRAINS A 22-Venezuelan three-way Cook catheter. COMPLICATIONS None. CONDITION Patient taken to recovery room awake and in stable condition. STATEMENT OF MEDICAL NECESSITY Patient is a 67-year-old white male who was originally diagnosed with a 1.5 cm G I, Ta transitional cell carcinoma of the bladder back in 2014. In original followup, he was noted to have some dystrophic calcifications at the TUR site and some papillary changes and was returned to the operating room in June 2015 for a biopsy which only returned inflammation. His followup office cystoscopies and cytologies were negative until early this spring when he was noted to have some small papillary changes on the anterior surface of the bladder. He was scheduled for transurethral resection in the operating room; however, he has had some other medical issues including significant hypoxia, pulmonary embolism, and polycythemia that had to be addressed and has finally been cleared from these issues. The patient currently denies any obstructive or irritative voiding symptoms, and his urinalysis preoperatively is unremarkable. DESCRIPTION OF OPERATION PERFORMED Patient was taken to the operating room. General anesthetic was obtained. He was placed in the dorsal lithotomy position on the cystoscopic table. He was prepped and draped sterilely. Anesthetic cystoscopy was performed with the 21- Venezuelan rigid sheath and both 30- and 70-degree lenses. He had a normal- appearing penis, bulbar, membranous, and prostatic urethra. Upon entering his bladder, a papillary bladder tumor was noted at approximately the 5 o'clock position just inside the bladder neck on the trigone and medial to the ureteral orifice. He had two bladder tumors directly posterior to this, each measuring approximately 1 cm. He also had a papillary bladder tumor on the right lateral wall, also measuring approximately 1 cm on the left lateral wall. On the right side, he had a total of seven tumors, the largest measuring 1.5 cm, more on the posterolateral wall. All appeared papillary in nature with no surrounding mucosal erythema. The dystrophic calcification at the anterior posterior wall was also identified without significant change. At this point, the patient's urethra was sounded with a male sound out to 30-Venezuelan. This was followed by introduction of the 26-Venezuelan resectoscope sheath with the loop, and transurethral resection of the tumors was performed starting on the left side, resecting these, collecting them in one container, and being sent for analysis. Following this, the TUR sites on the left side were inspected, and small bleeding vessels were controlled with electrocautery. The TUR site on the posterior floor appeared to be significantly deep in nature, but I could not identify any true perivesical fat or actual evidence of perforation. I, therefore, proceeded with the transurethral resection of the remaining tumors on the patient's right side. These were all TUR'd, collected in one container, and sent for pathology. Again, small bleeding vessels were controlled on this side with electrocautery. Following this, the remainder of the bladder was inspected again with the 70-degree lenses. No other lesions could be identified. At this point, the dystrophic calcification was debrided from the prior TUR site with the loop without electrocautery. It was just undermined and gently pulled off. These were grasped from the dependent portion of the bladder and removed. Final inspection revealed no active bleeding or other anomalies. Therefore, a 22-Venezuelan Cook catheter was placed. He was begun on a slow, continuous irrigation with normal saline with a clear return. Given the fact that he had this questionably thin area on the left side of resection, I felt it was best to avoid mitomycin-C instillation in the immediate postoperative period and instead opted for continuous bladder irrigation overnight with normal saline. At the conclusion of the procedure, a B and O suppository was given per rectum. The patient was awakened in the operating room and taken to the recovery area in stable condition. PLAN The plan is to keep the patient 24 hours to continue his continued bladder irrigation with normal saline. We will discharge him home in the morning on [place], Colace, and Pyridium. We will see him in the office in approximately one to two weeks to review his pathology and discuss followup return to the OR in approximately six weeks for possible repeat biopsies and upper tract studies. We will also discuss the need for initiation of BCG therapy. CLAYTOND
[2017-12-27] MEDS: PHENAZOPYRIDINE 200 MG TAB PO PRN (19:40)
[2017-12-27] MEDS ORDERED: ZOLPIDEM TARTRATE 10 MG TAB PO SCH (21:00)
[2017-12-27] MEDS: DOCUSATE SODIUM 100 MG CAP PO SCH (21:27)
[2017-12-28 03:14] VITALS: BP 103/64
[2017-12-28] MEDS: PHENAZOPYRIDINE 200 MG TAB PO PRN (03:37)
[2017-12-28 07:27] VITALS: BP 111/67
[2017-12-28] MEDS: DOCUSATE SODIUM 100 MG CAP PO SCH (08:23)
[2017-12-28] MEDS ORDERED: OXYBUTYNIN CHL XL 5 MG TABCR PO SCH (09:00)
[2017-12-28] MEDS ORDERED: OXYB10TA21 PO (09:45)
[2017-12-28] MEDS ORDERED: DOCU-416 PO (09:45)
[2017-12-28] MEDS ORDERED: PHEN200T32 PO (09:46)
[2017-12-28] MEDS ORDERED: HYDR-4309 PO (09:46)
[2017-12-28 11:18] VITALS: Ht 170.2 cm; Wt 61.0 kg
== END 2017-12-28 10:26 | disposition home or self-care (01) ==
LOC: OR 00:12 → MED 12:20
PROVIDERS: ADMIT Urology; ATTEND Urology
DX: C67.9 Malignant neoplasm of bladder, unspecified (principal); N32.89 Other specified disorders of bladder; D64.89 Other specified anemias; Z86.711 Personal history of pulmonary embolism; D75.1 Secondary polycythemia; E83.119 Hemochromatosis, unspecified
CPT/HCPCS: 52234; 71046; 88305; 94640; A4346; A9270; G0378; J0690; J1100; J2405; J2704; J3010; J7050; J7620

== ENCOUNTER 2018-01-29 10:53 | Outpatient (RCR) | payer MEDICARE, OTHER ==
[2017-12-05 13:58] VITALS: BP 116/81
[2017-12-05 14:02] LABS: PLATELET COUNT, AUTOMATED 227 K/uL (150-450)
[2017-12-11 14:48] LABS: PLATELET COUNT, AUTOMATED 213 K/uL (150-450)
[2017-12-11 14:49] VITALS: BP 115/80
[2017-12-11 15:12] VITALS: BP 116/72
[2017-12-19 13:07] VITALS: BP 105/71
[2017-12-19 13:21] LABS: PLATELET COUNT, AUTOMATED 214 K/uL (150-450)
[2017-12-28 11:18] VITALS: Wt 63.4 kg
[2018-01-16 08:30] VITALS: BP 111/72
[2018-01-16 08:46] LABS: PLATELET COUNT, AUTOMATED 290 K/uL (150-450)
[2018-01-17 11:42] VITALS: BP 114/72
--- NOTE | 2018-01-17 15:15 | EL-TARABILY ONCOLOGY NOTE ---
EVENT DATE: January 17, 2018 DIAGNOSES 1. Hemochromatosis. 2. Erythrocytosis. 3. Homocystinemia. CHIEF COMPLAINT Patient is here today for followup of his hemochromatosis, polycythemia vera and pulmonary embolism. HEMATOLOGY HISTORY Patient is 67-year-old male who was followed for polycythemia. His JAK2 was mildly positive. Patient was also found to have macrocytosis and he has homocystinemia as well. He was maintained on phlebotomies in the past. He had an ultrasound in 2014 which showed gallbladder sludge. He has also hypoxemia at night. His polycythemia appeared to be multifactorial with nocturnal hypoxemia and JAK2 mutation positive myeloproliferative disorder. He was also diagnosed with bladder cancer superficial, treated by Dr. Choudhary. He has been seen by Dr. Choudhary recently and he had a CT abdomen and pelvis done on August 14, 2017, which incidentally found a left lower lobe pulmonary embolism in the segmental and subsegmental arteries. Patient started treatment with Xarelto 15 mg twice daily for three weeks, then 20 mg daily after that. Patient is planned to have surgical procedure by Dr. Choudhary. HISTORY OF PRESENT ILLNESS Patient is here today for followup of his polycythemia, hemochromatosis and pulmonary embolism. The patient is scheduled on January 31, 2018 to have cystoscopy with possible TURBT. The patient is complaining of occasional nausea. He has had some fatigue since his last cystoscopic procedure. PAST MEDICAL HISTORY 1. History of colonic polyps. 2. Homocystinemia. 3. Hemochromatosis. 4. JAK2 mutation positive erythrocytosis. 5. Pulmonary embolism diagnosed August 14, 2017. PAST SURGICAL HISTORY 1. Tonsillectomy. 2. Hand surgery. SOCIAL HISTORY Patient is single with no children. 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 Denies any abuse of alcohol or illicit drugs. FAMILY HISTORY Father had prostate cancer. CURRENT MEDICATIONS Multivitamins. Xarelto. ALLERGIES No known drug allergies. REVIEW OF SYSTEMS CONSTITUTIONAL: No appetite or weight change. No fever, chills or sweating. No recent infection. HEENT: Ears: No tinnitus or hearing problem. Nose: No nasal discharge or epistaxis. Throat: No sore throat or mouth ulcers. Eyes: No diplopia or visual changes. RESPIRATORY: No shortness of breath. No cough, expectoration or hemoptysis. CARDIOVASCULAR: No chest pain, orthopnea, or paroxysmal nocturnal dyspnea (PND) . No edema. No palpitations. GASTROINTESTINAL: He has nausea. GENITOURINARY: No hematuria or dysuria. MUSCULOSKELETAL: No pain in the muscles, joints or bones. NEUROLOGICAL: No tingling or numbness in the hands or feet. No headaches or convulsions. HEMATOLOGIC/LYMPHATIC: He is weak, tired and fatigued. SKIN: No skin rash or lumps. PSYCHIATRIC: No anxiety or depression. PHYSICAL EXAMINATION GENERAL: Looks stable. Well-developed, well-nourished, and in no acute distress. VITAL SIGNS: Blood pressure 114/72], pulse 60 per minute, respirations 16 per minute, temperature 98.3, pulse oximetry 90% on room air. HEENT: Head: Atraumatic. No sinus tenderness to palpation. Eyes: No icterus or conjunctivitis. Mouth and throat: No oral thrush or mucositis. NECK: Supple. No cervical or supraclavicular lymphadenopathy. LUNGS: Clear to auscultation and percussion bilaterally. HEART: Regular rate and rhythm. No gallops, murmurs, clicks or rubs. ABDOMEN: Soft and lax. No tenderness. No hepatosplenomegaly. No masses. EXTREMITIES: No cyanosis, clubbing or edema. LYMPHATICS: No peripheral lymphadenopathy. NEUROLOGICAL: Conscious, alert and oriented times three. No focal motor or sensory deficits. PSYCHIATRIC: Mood and affect appear normal. SKIN: No skin rash, bruise or purpuric eruption. DIAGNOSTIC DATA CBC showed white count 8,000, hemoglobin 15.2, hematocrit 44.1, platelets 290, 000. Serum iron is 38, which is low, TIBC 482, iron saturation 7.9% and ferritin 15, which is low. Homocysteine level is pending. ASSESSMENT 1. Pulmonary embolism involving the left lower lobe and segmental and subsegmental arteries. Patient started Xarelto 15 mg twice daily for three weeks, August 14, 2017, to be followed by Xarelto 20 mg daily for a total of six months. Patient is planned to have surgery with Dr. Choudhary with cystoscopy on January 31, 2018 for his superficial bladder cancer. I am planning to stop Xarelto three days before the procedure and to resume is 24 hours after the procedure. 2. 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 I am planning to check his CBC on January 29, 2018, two days prior to his surgery, and if his hematocrit is above 45% I am planning to phlebotomize 500 mL of blood and planning to recheck his CBC one hour after the procedure to be sure his hematocrit is below 45% prior to his surgery. 3. Homocystinemia. His current level is pending. It was 13 with his last visit. 4. Superficial bladder cancer. Patient is going to have cystoscopy with possible TURBT by Dr. Choudhary on January 31, 2018. PLAN 1. Hold Xarelto three days prior to surgery. 2. Resume Xarelto at 20 mg daily 24 hours after surgery. 3. Check CBC on January 29, 2018 and proceed with phlebotomy of 500 mL if hematocrit is above 45%. 4. Xarelto will be continued until the end of February 2018, after completion of six months of treatment. 5. Patient to return in three months with CBC, iron studies with ferritin and homocysteine level. 6. Patient is to contact us for any new concerns or complaints. MTDD
[2018-02-01] MEDS ORDERED: HYDR-4309 PO (07:17)
[2018-02-01] MEDS ORDERED: DOCU-416 PO (07:18)
[2018-02-01] MEDS ORDERED: OXYB10TA21 PO (07:19)
[2018-02-01] MEDS ORDERED: PHEN200T32 PO (07:21)
== END 2018-03-04 ==
LOC: SPU 10:53
PROVIDERS: ATTEND Nurse Practitioner Family
DX: D75.1 Secondary polycythemia (principal); I26.99 Other pulmonary embolism without acute cor pulmonale; E72.11 Homocystinuria; Z79.01 Long term (current) use of anticoagulants; R11.0 Nausea; R53.83 Other fatigue; R53.1 Weakness
CPT/HCPCS: 36415; 81001; 82728; 83090; 83540; 83550; 85025; 85027; 85610; 85730; 87088; G0463; 82040; 82247; 82310; 82374; 82435; 82565; 82947; 84075; 84132; 84155; 84295; 84450; 84460; 84520; 99195; 99212

== ENCOUNTER → 2018-01-29 | Outpatient (CLI) | payer MEDICARE, OTHER ==
[2017-12-28 11:18] VITALS: BMI 21.0
[~2018-01-29] MED LIST changes: +HYDR-4309 PO
[2018-01-29 11:31] LABS: INR 0.96
== END ==
LOC: SPU 10:56
PROVIDERS: ATTEND Urology
DX: C67.9 Malignant neoplasm of bladder, unspecified (principal)
CPT/HCPCS: 81001; 82040; 82247; 82310; 82374; 82435; 82565; 82947; 84075; 84132; 84155; 84295; 84450; 84460; 84520; 85610; 85730; 87088

== ENCOUNTER 2018-01-31 00:33 | Observation (INO) | payer MEDICARE, OTHER ==
--- NOTE | 2018-01-30 14:53 | HISTORY AND PHYSICAL ---
DATE OF ADMISSION: January 31, 2018 CHIEF COMPLAINT Bladder cancer. 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 At that time, he had three papillary tumors which returned grade 1Ta lesions. He had a re-TUR four months later which only returned some inflammation. However, on followup in the office this past spring, he was noted to have recurrent small bladder tumors and was subsequently taken to the operating room on the 27 of December. At that time, he was noted to have several small tumors ranging from 0.5 cm to 1.5 cm, all papillary in appearance, primarily on the bladder floors bilaterally. He underwent resection of these tumors at that time. He is now being brought back to the operating room for restaging TUR. PAST MEDICAL HISTORY 1. Homocysteinemia. 2. Polycythemia. 3. Hemochromatosis. 4. Pulmonary embolism. 5. Kidney stone. 6. Bladder cancer. 7. Hypoxia. PAST SURGICAL HISTORY 1. Colonoscopy in 2004. 2. Transurethral resection of bladder tumor 2014. 3. Cystoscopy with bladder biopsy with mitomycin instillation June 2015. 4. Transurethral resection of bladder tumors December 27, 2017. CURRENT MEDICATIONS 1. Multivitamins. 2. Xarelto. 3. Oxygen. ALLERGIES No known drug allergies. FAMILY HISTORY Noncontributory. REVIEW OF SYSTEMS Patient denies chest pain, shortness of breath, nausea, vomiting, fever, chills, chronic headache, productive cough, or liver disease. PHYSICAL EXAMINATION GENERAL: Patient is a well-developed, well-nourished, in no acute distress. HEENT: Normocephalic, atraumatic. CHEST: Clear to auscultation bilaterally. CARDIOVASCULAR: Regular rate and rhythm. ABDOMINAL: Soft, nontender. No masses are palpated. GENITOURINARY: Deferred to the OR. EXTREMITIES: Without clubbing, cyanosis, or edema. NEUROLOGIC: Nonfocal. IMPRESSION A 67-year-old white male with history of recurrent bladder tumors, now being returned for repeat transurethral resection. PLAN We will perform anesthetic cystoscopy, bladder biopsy, and possible transurethral resection for restaging TUR. [facility]
[~2018-01-31] VITALS: Ht 154.9 cm; Wt 59.9 kg
[2018-01-31] VITALS (12 sets, daily range): BP systolic 91–128; BP diastolic 57–73
[2018-01-31] MEDS ORDERED: NORMOSOL R SOLN(*) 1000 ML BAG 1,000 ML IV PRN (06:00)
[2018-01-31 06:31] LABS: PLATELET COUNT, AUTOMATED 224 K/uL (150-450)
[2018-01-31 06:41] LABS: INR 0.95
[2018-01-31] MEDS ORDERED: MIDAZOLAM 2 MG/2 ML VIAL IVP PRN (06:45)
[2018-01-31] MEDS ORDERED: LIDOCAINE/SOD BICARB 8.4% SYR ID ONE (06:45)
[2018-01-31] MEDS ORDERED: FAMOTIDINE 20 MG TAB PO ONE (06:45)
[2018-01-31] MEDS ORDERED: ceFAZolin(*) 1 GM VIAL 1 GM in NS(*) 0.9% 100 ML ADDVANT BAG 100 ML IVPB ONE (06:45)
[2018-01-31] MEDS ORDERED: HYDROCORTISONE 1% CR 28.35 GM TP ONE (07:07)
[2018-01-31] MEDS ORDERED: BELLADONNA ALK/OPIUM 60MG SUPP PR ONE (07:07)
[2018-01-31] MEDS ORDERED: IOPAMIDOL-200 50 ML VIAL IS ONE (07:07)
[2018-01-31] MEDS ORDERED: DEXAMETHASONE SOD PHOS 10MG/ML ONE (07:24)
[2018-01-31] MEDS ORDERED: ONDANSETRON 4 MG/2 ML VIAL ONE (07:24)
[2018-01-31] MEDS ORDERED: fentaNYL CITR 100 MCG/2 ML AMP ONE ×3 (07:24→09:35)
[2018-01-31] MEDS ORDERED: LIDOCAINE MPF 1% 5 ML VIAL ONE (07:24)
[2018-01-31] MEDS ORDERED: PROPOFOL EMUL(*) 10MG/ML 20 ML 20 ML ONE (07:24)
[2018-01-31] MEDS ORDERED: mitoMYcin 20 MG VIAL 40 MG in WATER STERILE FOR INJ 50 ML VL 40 ML IR ONE (08:00)
[2018-01-31] MEDS ORDERED: NS(*) 0.9% 1000 ML BAG 1,000 ML IV PRN (09:05)
[2018-01-31] MEDS ORDERED: ZOLPIDEM TARTRATE 5 MG TAB PO PRN (09:10)
[2018-01-31] MEDS ORDERED: ACETAMINOPHEN 325 MG TAB PO PRN (09:10)
[2018-01-31] MEDS ORDERED: IBUPROFEN 600 MG TAB PO PRN (09:15)
[2018-01-31] MEDS ORDERED: MAG HYD/AL HYD/SIMETH 30ML UDC PO PRN (09:15)
--- NOTE | 2018-01-31 09:32 | PIERCE CYSTOSCOPY ---
EVENT DATE: January, SURGEON: Obed Choudhary MD ANESTHESIOLOGIST: Misael Chase MD ANESTHESIA: General PREOPERATIVE DIAGNOSIS Bladder cancer. POSTOPERATIVE DIAGNOSIS Bladder cancer. PROCEDURES PERFORMED 1. Cystoscopy. 2. Cold-cut bladder biopsy of right lateral fulguration site. 3. Mitomycin C vesicle instillation in recovery room. ESTIMATED BLOOD LOSS 5 mL. IV FLUIDS Crystalloids. DRAINS 20-Setswana 3-way Cook catheter. PATHOLOGY Cold-cut biopsy of right lateral floor for permanent analysis. COMPLICATIONS None. CONDITION The patient was taken to recovery room awake and in stable condition. STATEMENT OF MEDICAL NECESSITY The patient is a 67-year-old white male with history of bladder cancer who was noted to have multiple recurrent tumors approximately one month ago. He had a total of approximately 11 tumors ranging from 0.5 to 1.5 cm. He is now being brought to the or for planned followup cystoscopy and re-RT as indicated. His prior tumors all appear very papillary in nature and appear to be superficial; however, they were quite numerous. His pathology revealed a noninvasive low- grade disease. DESCRIPTION OF OPERATION PERFORMED The patient was brought to the operating room and after general anesthetic was obtained, he was placed in the dorsal lithotomy position and prepped and draped in the usual sterile manner. Anesthetic cystoscopy was performed with the 21- Setswana rigid sheath and both the 30-degree and 70-degree lenses. He had a normal-appearing urethra and upon entering his bladder the previous TUR sites were healing well. There was a very small amount of remaining papillary changes on the right lateral floor biopsy area and the remainder areas appeared normal. At this point, the cold-but biopsy forceps were used to biopsy this right lateral base area and this was sent for analysis. At this point, the continuous flow cystoscope sheath was introduced and the biopsy site was fulgurated. The scope was removed. A 20-Setswana Cook catheter 3-way type was placed. The irrigation port was plugged and was placed to gravity drainage. The patient was given a B&O suppository in the operating room, where he was awakened and taken to the recovery area. There 40 mg of mitomycin C and 40 mL of saline were introduced into the patient's bladder via his Cook, which was clamped. The plan will be to keep it in there for one hour and then drain it. 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 We will plan to see him in the Urology Clinic in approximately one to two weeks to review his pathology and to discuss the need for further treatment with intravesical BCG. [facility]
[2018-01-31] MEDS: PHENAZOPYRIDINE 200 MG TAB PO PRN ×2 (11:23→17:37)
[2018-01-31] MEDS: APAP/HYDROCODONE 325/5 TAB PO PRN ×3 (11:23→21:15)
[2018-01-31] MEDS: DOCUSATE SODIUM 100 MG CAP PO SCH (21:00)
[2018-02-01] VITALS: BP 103/63
[2018-02-01] MEDS: APAP/HYDROCODONE 325/5 TAB PO PRN (01:17)
[2018-02-01 03:50] VITALS: BP 100/64
[2018-02-01] MEDS ORDERED: HYDR-4309 PO (07:17)
[2018-02-01] MEDS ORDERED: DOCU-416 PO (07:18)
[2018-02-01] MEDS ORDERED: OXYB10TA21 PO (07:19)
[2018-02-01] MEDS ORDERED: PHEN200T32 PO (07:21)
[2018-02-01 07:35] VITALS: BP 99/69
[2018-02-01] MEDS: DOCUSATE SODIUM 100 MG CAP PO SCH (08:59)
[2018-02-01] MEDS ORDERED: OXYBUTYNIN CHL XL 5 MG TABCR PO SCH (09:00)
[2018-02-01 09:30] VITALS: Ht 154.9 cm; Wt 59.9 kg
== END 2018-02-01 09:33 | disposition home or self-care (01) ==
LOC: OR 00:33 → MED 11:00
PROVIDERS: ADMIT Urology; ATTEND Urology
DX: C67.9 Malignant neoplasm of bladder, unspecified (principal); D75.1 Secondary polycythemia; Z86.711 Personal history of pulmonary embolism; E83.119 Hemochromatosis, unspecified
CPT/HCPCS: 36415; 51720; 52204; 81001; 85025; 85610; 85730; 87088; 88305; A4338; A9270; C1758; G0378; J0690; J1100; J2001; J2405; J2704; J3010; J7050; J9280; 82040; 82247; 82310; 82374; 82435; 82565; 82947; 84075; 84132; 84155; 84295; 84450; 84460; 84520; Q9966

== ENCOUNTER → 2018-04-04 | Outpatient (CLI) | payer MEDICARE, OTHER ==
[2018-02-01 09:30] VITALS: BMI 24.9
[~2018-04-04] MED LIST changes: -HYDR-4309 PO; +HYDR-653 PO
== END ==
LOC: LAB 14:07
PROVIDERS: ATTEND Urology
DX: Z12.5 Encounter for screening for malignant neoplasm of prostate (principal)
CPT/HCPCS: 36415; G0103; 84153

== ENCOUNTER 2018-06-21 12:24 | Outpatient (RCR) | payer MEDICARE, OTHER ==
[2018-02-01 09:30] VITALS: Wt 65.3 kg
[2018-04-17 11:11] LABS: PLATELET COUNT, AUTOMATED 184 K/uL (150-450)
[2018-04-18 11:43] VITALS: BP 126/78
[2018-04-18 12:58] VITALS: BP 110/82
--- NOTE | 2018-04-19 04:53 | EL-TARABILY ONCOLOGY NOTE ---
EVENT DATE: April 18, 2018 DIAGNOSES 1. Hemochromatosis. 2. Erythrocytosis. 3. Homocystinemia. CHIEF COMPLAINT Patient is here today for followup of his polycythemia vera and pulmonary embolism. HEMATOLOGY HISTORY Patient is 67-year-old male who was followed for polycythemia. His JAK2 was mildly positive. Patient was also found to have macrocytosis and he has homocystinemia as well. He was maintained on phlebotomies in the past. He had an ultrasound in 2014 which showed gallbladder sludge. He has also hypoxemia at night. His polycythemia appeared to be multifactorial with nocturnal hypoxemia and JAK2 mutation positive myeloproliferative disorder. He was also diagnosed with bladder cancer superficial, treated by Dr. Choudhary. He has been seen by Dr. Choudhary recently and he had a CT abdomen and pelvis done on August 14, 2017, which incidentally found a left lower lobe pulmonary embolism in the segmental and subsegmental arteries. Patient started treatment with Xarelto 15 mg twice daily for three weeks, then 20 mg daily after that. Patient is planned to have surgical procedure by Dr. Choudhary. HISTORY OF PRESENT ILLNESS Patient is here today for followup of his polycythemia and pulmonary embolism. He is complaining of dry cough. He also has constipation. He has pain in the right shoulder lately. PAST MEDICAL HISTORY 1. History of colonic polyps. 2. Homocystinemia. 3. Hemochromatosis. 4. JAK2 mutation positive erythrocytosis. 5. Pulmonary embolism diagnosed August 14, 2017. PAST SURGICAL HISTORY 1. Tonsillectomy. 2. Hand surgery. SOCIAL HISTORY Patient is single with no children. 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 Denies any abuse of alcohol or illicit drugs. FAMILY HISTORY Father had prostate cancer. CURRENT MEDICATIONS Multivitamins. Xarelto. ALLERGIES No known drug allergies. REVIEW OF SYSTEMS CONSTITUTIONAL: No appetite or weight change. No fever, chills or sweating. No recent infection. HEENT: Ears: No tinnitus or hearing problem. Nose: No nasal discharge or epistaxis. Throat: No sore throat or mouth ulcers. Eyes: No diplopia or visual changes. RESPIRATORY: He has dry cough. CARDIOVASCULAR: No chest pain, orthopnea, or paroxysmal nocturnal dyspnea (PND). No edema. No palpitations. GASTROINTESTINAL: He has constipation. GENITOURINARY: No hematuria or dysuria. MUSCULOSKELETAL: He has pain in the right shoulder. NEUROLOGICAL: No tingling or numbness in the hands or feet. No headaches or convulsions. HEMATOLOGIC/LYMPHATIC: No bleeding or easy bruising. No weakness or fatigued. No enlarged lymph nodes. SKIN: No skin rash or lumps. PSYCHIATRIC: No anxiety or depression. PHYSICAL EXAMINATION GENERAL: Looks stable. Well-developed, well-nourished, and in no acute distress. VITAL SIGNS: Blood pressure 126/78, pulse 65 per minute, respirations 16 per minute, temperature 98.2, pulse oximetry 88% on room air. HEENT: Head: Atraumatic. No sinus tenderness to palpation. Eyes: No icterus or conjunctivitis. Mouth and throat: No oral thrush or mucositis. NECK: Supple. No cervical or supraclavicular lymphadenopathy. LUNGS: Clear to auscultation and percussion bilaterally. HEART: Regular rate and rhythm. No gallops, murmurs, clicks or rubs. ABDOMEN: Soft and lax. No tenderness. No hepatosplenomegaly. No masses. EXTREMITIES: No cyanosis, clubbing or edema. LYMPHATICS: No peripheral lymphadenopathy. NEUROLOGICAL: Conscious, alert and oriented times three. No focal motor or sensory deficits. PSYCHIATRIC: Mood and affect appear normal. SKIN: No skin rash, bruise or purpuric eruption. DIAGNOSTIC DATA CBC showed white count 7.3, hemoglobin 17.4, hematocrit 52.1, platelets 184,000. Serum ferritin is 12, which is low. Serum iron 67. TIBC 467. Iron saturation 14.3%. Chem panel totally normal except for carbon dioxide 31 and blood sugar 111. ASSESSMENT 1. Pulmonary embolism involving the left lower lobe and segmental and subsegmental arteries. Patient started Xarelto 15 mg twice daily for three weeks on August 14, 2017, to be followed by Xarelto 20 mg daily for a total of six months. Patient continued six months of anticoagulation, which was discontinued recently by his primary care provider. 2. [id number] polycythemia vera, and JAK2 was positive for V617F mutation. His current hematocrit is 52.1%, and I am planning to phlebotomize 500 mL of blood this time. I am planning also to put him on hydroxyurea 500 mg daily. I will check his count with CBC weekly, and I will see him in a month with CBC, chem panel, and iron studies at that time. I will try to keep his hematocrit below 45%. 3. Homocystinemia. We will check his count with his next visit. 4. Superficial bladder cancer. Patient had cystoscopy and transurethral resection of bladder tumor by Dr. Choudhary, and he is currently on BCG treatment. PLAN 1. Phlebotomize 500 mL blood. 2. Hydroxyurea 500 mg daily. 3. CBC to be checked weekly. 4. Patient to return in one month with CBC, chem panel, iron studies with ferritin, and homocysteine level. 5. Patient to contact us for any new concerns or complaints. MTDD
[2018-04-25 11:44] VITALS: BP 109/83
[2018-04-25 11:56] LABS: PLATELET COUNT, AUTOMATED 201 K/uL (150-450)
[2018-05-07 13:47] VITALS: BP 123/81
[2018-05-15 12:06] VITALS: BP 112/73
[2018-05-23 13:02] VITALS: BP 96/70
[2018-05-23 13:17] LABS: PLATELET COUNT, AUTOMATED 222 K/uL (150-450)
[2018-05-30 13:14] LABS: PLATELET COUNT, AUTOMATED 214 K/uL (150-450)
[2018-05-30 13:16] VITALS: BP 118/73
[2018-06-14 12:25] VITALS: BP 133/80
[2018-06-14 12:38] LABS: PLATELET COUNT, AUTOMATED 221 K/uL (150-450)
[~2018-06-21 12:24] MED LIST changes: +DEXTROSE 5%(*) 100 ML BAG 100 ML IVPB PRN; +LIDOCAINE/SOD BICARB 8.4% SYR ID PRN; +NS(*) 0.9% 100 ML BAG 100 ML IVPB PRN
[2018-06-21 12:25] VITALS: BP 144/75
[2018-06-21] MEDS ORDERED: FOLI0.8T29 PO (14:00)
--- NOTE | 2018-06-22 10:11 | EL-TARABILY ONCOLOGY NOTE ---
EVENT DATE: June 21, 2018 DIAGNOSES 1. Hemochromatosis. 2. Erythrocytosis. 3. Homocystinemia. CHIEF COMPLAINT Patient is here today for followup of his polycythemia vera and pulmonary embolism. HEMATOLOGY HISTORY Patient is 67-year-old male who was followed for polycythemia. His JAK2 was mildly positive. Patient was also found to have macrocytosis and he has homocystinemia as well. He was maintained on phlebotomies in the past. He had an ultrasound in 2014 which showed gallbladder sludge. He has also hypoxemia at night. His polycythemia appeared to be multifactorial with nocturnal hypoxemia and JAK2 mutation positive myeloproliferative disorder. He was also diagnosed with bladder cancer superficial, treated by Dr. Choudhary. He has been seen by Dr. Choudhary recently and he had a CT abdomen and pelvis done on August 14, 2017, which incidentally found a left lower lobe pulmonary embolism in the segmental and subsegmental arteries. Patient started treatment with Xarelto 15 mg twice daily for three weeks, then 20 mg daily after that. Patient is planned to have surgical procedure by Dr. Choudhary. HISTORY OF PRESENT ILLNESS Patient is here today for followup of his polycythemia and pulmonary embolism. He is complaining of shortness of breath. He has runny nose from nasal allergy. He has pain in his shoulders. He has constipation. He is using oxygen now. PAST MEDICAL HISTORY 1. History of colonic polyps. 2. Homocystinemia. 3. Hemochromatosis. 4. JAK2 mutation positive erythrocytosis. 5. Pulmonary embolism diagnosed August 14, 2017. PAST SURGICAL HISTORY 1. Tonsillectomy. 2. Hand surgery. SOCIAL HISTORY Patient is single with no children. 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 Denies any abuse of alcohol or illicit drugs. FAMILY HISTORY Father had prostate cancer. CURRENT MEDICATIONS Multivitamins. Xarelto. ALLERGIES No known drug allergies. REVIEW OF SYSTEMS CONSTITUTIONAL: No appetite or weight change. No fever, chills or sweating. No recent infection. HEENT: Ears: No tinnitus or hearing problem. Nose: He has nasal discharge from allergy. Throat: No sore throat or mouth ulcers. Eyes: No diplopia or visual changes. RESPIRATORY: He has shortness of breath. CARDIOVASCULAR: No chest pain, orthopnea, or paroxysmal nocturnal dyspnea (PND). No edema. No palpitations. GASTROINTESTINAL: He has constipation. GENITOURINARY: No hematuria or dysuria. MUSCULOSKELETAL: He has pain in the shoulders. NEUROLOGICAL: No tingling or numbness in the hands or feet. No headaches or convulsions. HEMATOLOGIC/LYMPHATIC: No bleeding or easy bruising. No weakness or fatigued. No enlarged lymph nodes. SKIN: No skin rash or lumps. PSYCHIATRIC: No anxiety or depression. PHYSICAL EXAMINATION GENERAL: Looks stable. Well-developed, well-nourished, and in no acute distress. VITAL SIGNS: Blood pressure 144/75, pulse 67 per minute, respirations 16 per minute, temperature 97.3 pulse oximetry 90% on 2L oxygen. HEENT: Head: Atraumatic. No sinus tenderness to palpation. Eyes: No icterus or conjunctivitis. Mouth and throat: No oral thrush or mucositis. NECK: Supple. No cervical or supraclavicular lymphadenopathy. LUNGS: Clear to auscultation and percussion bilaterally. HEART: Regular rate and rhythm. No gallops, murmurs, clicks or rubs. ABDOMEN: Soft and lax. No tenderness. No hepatosplenomegaly. No masses. EXTREMITIES: No cyanosis, clubbing or edema. LYMPHATICS: No peripheral lymphadenopathy. NEUROLOGICAL: Conscious, alert and oriented times three. No focal motor or sensory deficits. PSYCHIATRIC: Mood and affect appear normal. SKIN: No skin rash, bruise or purpuric eruption. DIAGNOSTIC DATA CBC showed white count 6.6, hemoglobin 14.2, hematocrit 42.3, platelets 221,000. Serum iron 81, TIBC 421, iron saturation 19.2 and ferritin low at 11. Chem panel totally normal except total protein 6, blood sugar 117. Homocysteine level is 12, which is down from 13. ASSESSMENT 1. Pulmonary embolism involving the left lower lobe and segmental and subsegmental arteries. Patient started Xarelto 15 mg twice daily for three weeks on August 14, 2017, to be followed by Xarelto 20 mg daily for a total of six months. He is doing fine currently and is followed by his primary care. 2. [id number] polycythemia vera. His JAK2 was positive for V617F mutation. His current hematocrit is 42.3%. There is no indication of phlebotomy this time. I am planning to continue hydroxyurea 500 mg daily. I will check his CBC in three months from now and consider phlebotomy if the hematocrit is above 45%. 3. Homocystinemia. Current homocysteine level is 12, which is down from 13. Patient did not take any folic acid. I advised him to take two pills of [id number] folic acid at 800 mcg daily. 4. Superficial bladder cancer. Patient had cystoscopy and transurethral resection of bladder tumor by Dr. Choudhary and he received BCG treatment. PLAN 1. Continue followup. 2. Patient to return in six months with CBC, chem panel, iron studies with ferritin and fasting homocysteine. 3. Folic acid 800 mcg daily. 4. Consider phlebotomy if hematocrit above 45% 5. CBC and iron studies with ferritin to be checked in three months. 6. Patient to contact us for any new concerns or complaints. MTDD
== END 2018-07-16 ==
LOC: ONC 12:24
PROVIDERS: ATTEND Internal Medicine Hematology
DX: I26.99 Other pulmonary embolism without acute cor pulmonale (principal); D45 Polycythemia vera; E72.11 Homocystinuria; C67.9 Malignant neoplasm of bladder, unspecified; E83.119 Hemochromatosis, unspecified; R05 Cough; K59.00 Constipation, unspecified
CPT/HCPCS: 36415; 82728; 83090; 83540; 83550; 85025; 85027; 99195; G0463; 82040; 82247; 82310; 82374; 82435; 82565; 82947; 84075; 84132; 84155; 84295; 84450; 84460; 84520; 99212

== ENCOUNTER → 2018-08-07 | Outpatient (REF) | payer MEDICARE, OTHER ==
[2018-02-01 09:30] VITALS: BMI 24.9
[~2018-08-07] MED LIST changes: -DEXTROSE 5%(*) 100 ML BAG 100 ML IVPB PRN; +FOLI0.8T29 PO; -LIDOCAINE/SOD BICARB 8.4% SYR ID PRN; -NS(*) 0.9% 100 ML BAG 100 ML IVPB PRN
== END ==
LOC: ZZSENDIN 12:00
PROVIDERS: ATTEND Urology
DX: C67.9 Malignant neoplasm of bladder, unspecified (principal)
CPT/HCPCS: 88108

== ENCOUNTER → 2018-08-14 | Outpatient (CLI) | payer MEDICARE, OTHER ==
[2018-02-01 09:30] VITALS: Ht 170.2 cm; Wt 63.7 kg
[~2018-08-14] VITALS: Ht 170.2 cm; Wt 63.7 kg
[~2018-08-14] MED LIST changes: +FAMOTIDINE 20 MG TAB PO ONE; +LIDOCAINE/SOD BICARB 8.4% SYR ID ONE; +MIDAZOLAM 2 MG/2 ML VIAL IVP PRN; +NORMOSOL R SOLN(*) 1000 ML BAG 1,000 ML IV PRN; +ceFAZolin(*) 1 GM VIAL 1 GM in NS(*) 0.9% 100 ML ADDVANT BAG 100 ML IVPB ONE
[2018-08-14 10:48] LABS: PLATELET COUNT, AUTOMATED 236 K/uL (150-450)
--- NOTE | 2018-08-14 10:59 | EKG ---
FACILITY: [facility] - [place] PATIENT NAME: CHRISTOPHER JAFFE : [id number] MR: [id number] V: [id number] EXAM DATE: ORDERING PHYSICIAN: JIMBO BAILEY TECHNOLOGIST: Test Reason : Blood Pressure : / mmHG Vent. Rate : 073 BPM Atrial Rate : 073 BPM P-R Int : 172 ms QRS Dur : 138 ms QT Int : 378 ms P-R-T Axes : 085 124 032 degrees QTc Int : 416 ms Sinus rhythm Probable biatrial enlargement Frequent PVCs and PACs Nonspecific intraventricular block Abnormal ECG Confirmed by SKINNY RG ([id number] on 08/14/2018 9:38:28 PM Referred By: Confirmed By:SKINNY RG
[2018-08-14 11:07] LABS: INR 0.97
--- NOTE | 2018-08-14 11:24 | RADIOLOGY IMAGING REPORT ---
[place] [facility] [place] NAME: Paul Sheridan : 1950 MR: [id number] V: [id number] EXAM DATE: ORDERING PHYSICIAN: JIMBO BAILEY TECHNOLOGIST: Location: [facility] [place] Patient: Paul Sheridan : 1950 Visit/Account:[id number] Date of Sevice: 08/14/2018 CHEST PA LAT HISTORY: History of pulmonary embolus. Findings suspicious for chronic pulmonary hypertension. COMPARISON: CTA chest August 21, 2017 and chest x-ray from December 27, 2017. FINDINGS: Cardiomediastinal contours: The heart size is normal. The central pulmonary vessels and peripheral p ulmonary vessels are significantly enlarged. This is been noted in the past. The findings are highl y suggestive chronic pulmonary hypertension. Lungs and pleura: There is no findings of an infiltrate. There may be mild hyperinflation of the miguel gs. There is no pulmonary mass. Bones/soft tissues: There are no findings of a fracture. IMPRESSION: 1. Findings suggestive of chronic pulmonary hypertension. 2. No findings of an acute infiltrate. 3. Mild hyperinflation. Report Dictated By: Migue Chaves MD at 08/14/2018 11:18 AM Report E-Signed By: Migue Chaves MD at 08/14/2018 11:20 AM WSN:[id number]
== END ==
LOC: LAB 08:00 → EDSTATUS 08-29 14:15
PROVIDERS: ATTEND Urology
DX: Z01.812 Encounter for preprocedural laboratory examination (principal); Z01.818 Encounter for other preprocedural examination; Z01.810 Encounter for preprocedural cardiovascular examination; I27.20 Pulmonary hypertension, unspecified; R94.31 Abnormal electrocardiogram [ECG] [EKG]
CPT/HCPCS: 36415; 71046; 81001; 82040; 82247; 82310; 82374; 82435; 82565; 82947; 84075; 84132; 84155; 84295; 84450; 84460; 84520; 85025; 85610; 85730; 87088; 93005

== ENCOUNTER 2018-08-16 17:07 | Emergency (ER) | payer MEDICARE, OTHER ==
[2018-02-01 09:30] VITALS: Wt 63.5 kg
[2018-08-16] MEDS ORDERED: NS(*) 0.9% 1000 ML BAG 1,000 ML IV ONE (17:15)
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
[2018-08-16 17:32] LABS: PLATELET COUNT, AUTOMATED 231 K/uL (150-450)
[2018-08-16] MEDS ORDERED: IOPAMIDOL 76% 100 ML INFUS BTL 100 ML ONE (17:34)
[2018-08-16] MEDS ORDERED: NS(*) 0.9% 50 ML BAG 50 ML ONE (17:34)
--- NOTE | 2018-08-16 18:18 | RADIOLOGY IMAGING REPORT ---
FACILITY: [facility] PATIENT NAME: Paul Sheridan : 1950 MR: [id number] V: [id number] EXAM DATE: ORDERING PHYSICIAN: SILVANA ZUNIGA TECHNOLOGIST: Location: [facility] - [place] Patient: Paul Sheridan : 1950 Visit/Account:[id number] Date of Sevice: 08/16/2018 EXAMINATION: CTA of the chest with IV contrast HISTORY: Elevated d-dimer. TECHNIQUE: Pulmonary embolus protocol - Thin axial CT images of the chest were obtained with IV con trast during maximal pulmonary arterial opacification. Reconstruction of the source data includes mul tiplanar 2D coronal and sagittal reconstructed images, and 3D coronal and sagittal MIP images. Repres entative images have been stored on PACS. One of the following dose optimization techniques was utilized in the performance of this exam: Autom ated exposure control; adjustment of the mA and/or kV according to the patient's size; or use of an i terative reconstruction technique. Specific details can be referenced in the facility's radiology C T exam operational policy. Contrast: 75 mL of IV Isovue-370. COMPARISON: 08/21/2017. FINDINGS: Pulmonary arteries: There is stable enlargement of the central pulmonary arteries suggesting pulmona ry arterial hypertension. No new pulmonary artery filling defect. There is stable chronic mural thick ening along the left lower lobe pulmonary artery and segmental branches compatible with sequela of ch ronic thromboembolic disease. Heart, aorta, and great vessels: Normal caliber thoracic aorta. There is stable enlargement of the r ight-sided cardiac chambers compatible with right heart dysfunction. No pericardial effusion. Lungs and pleura: Mild subsegmental atelectasis in the lingula. No suspicious focal consolidation. S table subcentimeter nodules in the central right lung base measuring up to 4 mm. No pleural effusion or pneumothorax. The central airways are patent. Mediastinum and pily: Negative. Visualized upper abdomen: Stable small hypodensity in the left lobe of the liver, likely a small cys t. Chest wall: Negative. Bones: Negative. IMPRESSION: 1. No evidence of acute pulmonary embolism. 2. Stable sequela of chronic thromboembolic disease with chronic mural thickening along the left lowe r lobe pulmonary artery and segmental branches. There is stable enlargement of the central pulmonary arteries compatible with pulmonary arterial hypertension. 3. Mild subsegmental atelectasis in the lingula. No suspicious focal consolidation. 4. No other acute findings in the chest. Report Dictated By: Kingsley Louie MD at 08/16/2018 6:05 PM Report E-Signed By: Kingsley Louie MD at 08/16/2018 6:14 PM WSN:[id number]
[2018-08-16 18:35] VITALS: BP 128/88
== END 2018-08-16 18:42 | disposition home or self-care (01) ==
LOC: ER 18:13
DX: R79.89 Other specified abnormal findings of blood chemistry (principal); R06.02 Shortness of breath
CPT/HCPCS: 71275; 85025; 96360; 99284; J7030; J7050; Q9967

== ENCOUNTER → 2018-08-16 | Outpatient (CLI) | payer MEDICARE, OTHER ==
[2018-02-01 09:30] VITALS: BMI 24.9
[~2018-08-16] MED LIST changes: -FAMOTIDINE 20 MG TAB PO ONE; -LIDOCAINE/SOD BICARB 8.4% SYR ID ONE; -MIDAZOLAM 2 MG/2 ML VIAL IVP PRN; -NORMOSOL R SOLN(*) 1000 ML BAG 1,000 ML IV PRN; -ceFAZolin(*) 1 GM VIAL 1 GM in NS(*) 0.9% 100 ML ADDVANT BAG 100 ML IVPB ONE
== END ==
LOC: LAB 15:45
PROVIDERS: ATTEND Nurse Practitioner Family
DX: R09.02 Hypoxemia (principal); Z86.711 Personal history of pulmonary embolism
CPT/HCPCS: 36415; 85379

== ENCOUNTER 2018-10-24 00:51 | Observation (INO) | payer MEDICARE, OTHER ==
[2018-02-01 09:30] VITALS: Ht 170.2 cm; Wt 63.5 kg
--- NOTE | 2018-10-23 11:01 | HISTORY AND PHYSICAL ---
DATE OF ADMISSION: October 24, 2018 CHIEF COMPLAINT Bladder cancer. 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 He was followed with office surveillance cystoscopy and noted to have some small recurrences in December 2017 and had these resected. At this recurrence, he was begun on BCG induction treatment with six of six courses. Followup surveillance cystoscopy in late July revealed some smaller papillary lesions on the anterior bladder neck. He is now being brought to the operating room for planned TUR and biopsy of these lesions. PAST MEDICAL HISTORY 1. Homocysteinemia. 2. Polycythemia. 3. Hemochromatosis. 4. Pulmonary embolism. 5. Kidney stones. 6. Hypoxia. 7. Blader cancer as per HPI. PAST SURGICAL HISTORY 1. Colostomy, 2004. 2. Tonsillectomy. 3. Hand surgery. 4. Cystoscopy with TUR as per HPI. CURRENT MEDICATIONS 1. Multivitamins. 2. Xarelto, recently discontinued. 3. Oxygen. 4. Ventolin inhaler. ALLERGIES No known drug allergies. SOCIAL HISTORY Patient is single. He lives in [place], [place]. He is a smoker. FAMILY HISTORY Positive for prostate cancer. REVIEW OF SYSTEMS Patient denies chest pain, cough, fever, chills, nausea, vomiting, shortness of breath or productive cough. PHYSICAL EXAMINATION GENERAL: Patient is a well-developed, well-nourished white male in no acute distress. HEENT: Normocephalic, atraumatic. CHEST: Clear to auscultation bilaterally. CARDIOVASCULAR: Regular rate and rhythm. ABDOMEN: Soft, nontender. No masses palpated. : Deferred to OR. EXTREMITIES: No clubbing, cyanosis or edema. NEUROLOGIC: Nonfocal. IMPRESSION 67-year old white male with a history of bladder cancer now with small papillary recurrences in the anterior bladder neck. PLAN We will perform anesthetic cystoscopy, biopsy and fulguration of the lesions. [facility]
--- NOTE | 2018-10-23 11:09 | HISTORY AND PHYSICAL ---
DATE OF ADMISSION: October 24, 2018 CHIEF COMPLAINT History of bladder cancer. HISTORY OF PRESENT ILLNESS Patient is a 67-year old white male with a smoking history who was first diagnosed with transitional cell carcinoma of the bladder in 2014. At that time, he had three tumors which were all grade I superficial lesions. He was followed with office cystoscopy and was noted to have several small lesions that were consistent with recurrent small papillomas in mid 2017. At that time, he underwent resection of these lesions and was given a course of induction BCG treatment in the office. A followup cystoscopy in late July revealed two small papillary lesions on the anterior bladder neck area. He is now being brought to the operating room for planned anesthetic cystoscopy with resection and biopsy of these lesions. PAST MEDICAL HISTORY 1. Homocysteinemia. 2. Hemochromatosis. 3. Erythrocytosis with a JAK2 mutation positive. 4. Pulmonary embolism, August 2017. 5. Kidney stone. 6. Bladder cancer as per HPI. 7. Hypoxia. PAST SURGICAL HISTORY 1. Colonoscopy. 2. Tonsillectomy. 3. Hand surgery. 4. As per HPI. DICTATION ENDS HERE MTDD
[~2018-10-24] VITALS: Ht 170.2 cm; Wt 63.5 kg
[2018-10-24] VITALS (14 sets, daily range): BP systolic 113–145; BP diastolic 69–91
[~2018-10-24 00:51] MED LIST changes: +ADV230RPT INH; +ALB18R INH; +FAMOTIDINE 20 MG TAB PO ONE; +FURO-45 PO; +LIDOCAINE/SOD BICARB 8.4% SYR ID ONE; +MIDAZOLAM 2 MG/2 ML VIAL IVP PRN; +MULT1TAB54 PO; +NORMOSOL R SOLN(*) 1000 ML BAG 1,000 ML IV PRN; +ceFAZolin(*) 1 GM VIAL 1 GM in NS(*) 0.9% 100 ML MINI-BAG 100 ML IVPB ONE
[2018-10-24] MEDS: NORMOSOL R SOLN(*) 1000 ML BAG 1,000 ML IV PRN ×3 (06:08→09:15)
[2018-10-24] MEDS ORDERED: LIDOCAINE/SOD BICARB 8.4% SYR ID ONE (06:45)
[2018-10-24] MEDS ORDERED: FAMOTIDINE 20 MG TAB PO ONE (06:45)
[2018-10-24] MEDS ORDERED: MIDAZOLAM 2 MG/2 ML VIAL IVP PRN (06:45)
[2018-10-24] MEDS ORDERED: ceFAZolin(*) 1 GM VIAL 1 GM, GENTAMICIN(*) 80 MG/2 ML VIAL 60 MG in NS 0.9% IRRIGATION ... IR ONE (06:45)
[2018-10-24] MEDS ORDERED: ceFAZolin(*) 1 GM VIAL 1 GM in NS(*) 0.9% 100 ML MINI-BAG 100 ML IVPB ONE (06:45)
[2018-10-24 07:10] LABS: PLATELET COUNT, AUTOMATED 179 K/uL (150-450)
[2018-10-24 07:16] LABS: INR 0.99
[2018-10-24] MEDS ORDERED: fentaNYL CITR 100 MCG/2 ML AMP IVP ONE ×2 (08:43→09:07)
[2018-10-24] MEDS ORDERED: MAGNESIUM HYDROXIDE* 30ML UDCP PO PRN (09:10)
[2018-10-24] MEDS ORDERED: ZOLPIDEM TARTRATE 5 MG TAB PO PRN (09:10)
[2018-10-24] MEDS ORDERED: ALBUTEROL 8 GM INHALER INH PRN ×2 (09:10→13:50)
[2018-10-24] MEDS ORDERED: BELLADONNA ALK/OPIUM 60MG SUPP PR PRN (09:10)
[2018-10-24] MEDS ORDERED: MAG HYD/AL HYD/SIMETH 30ML UDC PO PRN (09:10)
[2018-10-24] MEDS ORDERED: mitoMYcin 20 MG VIAL 40 MG in WATER STERILE FOR INJ 50 ML VL 40 ML IR ONE (09:15)
--- NOTE | 2018-10-24 09:30 | OPERATIVE REPORT 1 ---
EVENT DATE: October 24, 2018 SURGEON: Obed Choudhary MD ANESTHESIOLOGIST: Fabian Orourke MD ANESTHESIA: General. PREOPERATIVE DIAGNOSIS Bladder tumors. POSTOPERATIVE DIAGNOSIS Two small papillary bladder lesions, measuring 3 mm and 5 mm, on the anterior surface of the bladder neck. PROCEDURES PERFORMED 1. Anesthetic rigid cystoscopy and flexible cystoscopy. 2. Laser ablation of bladder tumors x2, one measuring 3 mm and one measuring 5 mm on the anterior surface of the bladder neck. 3. Intravesical mitomycin C instillation in recovery room. ESTIMATED BLOOD LOSS Minimal. IV FLUIDS Crystalloids. DRAINS 20-Libyan three-way Cook catheter with port plugged. PATHOLOGY None. COMPLICATIONS None. STATEMENT OF MEDICAL NECESSITY Patient is a 67-year old white male who was originally diagnosed with multifocal low-grade transitional carcinoma of the bladder in 2014. He was noted to a recurrence in the last year and at that time underwent resection of these small lesions and was started on BCG induction treatment. On surveillance cystoscopy this past July, he was noted to have two small papillary lesions on the anterior surface of the bladder neck. These were located just at 12 o'clock and were approximately 1 cm from the bladder neck on the anterior surface, which could only be viewed with extreme retroflexion of the flexible scope. The patient is now being brought to the operating room for planned transurethral resection, removal or ablation of these lesions. DESCRIPTION OF PROCEDURE The patient was taken to the operating room after general anesthetic was obtained. He was placed in the dorsal lithotomy position on the cystoscopic table and prepped and draped in the usual sterile manner. The Olympus 21-Libyan scope was used to perform anesthetic cystoscopy using the 12 and 7-degree lenses. He had a normal appearing pendulous bulbar membranous and prostatic urethra. Upon entering his bladder, he had a smooth mucosa. His ureteral orifices were both effluxing clear urine. His old TUR scar sites on the left floor were well healed. No bladder tumors were visualized along the floor or lateral carlton of the dome of the bladder. Using the 7-degree lens and inverting it, the dome of the bladder and anterior surface was inspected. However, I still could not visualize the very anterior surface of his bladder neck and no tumors were visualized. Anterior pressure on the lower abdominal wall onto the bladder still did not result in visualization of this area. Therefore, the scope was removed and the flexible cystoscope was used. Retroflexion back to the bladder neck again revealed these lesions. Once was approximately 3 mm and one was approximately 5 mm. They were approximately 1 cm from the bladder neck at the 12 o'clock position. There appeared to be no other lesions. These appeared to be small transitional cell carcinomas or papillomas. The 365 holmium laser fiber was introduced into the working channel of the cystoscope. The holmium laser was set to ablation and both of these small tumors were ablated under direct vision using retroflexion of the scope and the camera. Burr Machine Operator images were obtained before and after ablation. At the conclusion of ablation, no further tumors or lesions could be identified. There was no bleeding seen. The laser was removed and the scope was removed. A 20- Libyan three-way Cook catheter placed with the irrigation port plugged. It was placed through gravity drainage and the balloon inflated. A B and O suppository was given per rectally. The patient was awakened in the operating room. He was taken to the recovery area, where 40 mg of Mitomycin C were instilled into the bladder and the port plugged. The plan will be to keep it in the bladder for approximately one hour. We will then drain the bladder and we will plan to admit the patient for 23-hour observation given his social history where he has no ride or someone to be available for the next 24 hours. DORYS
[2018-10-24] MEDS: APAP/HYDROCODONE 325/5 TAB PO PRN ×2 (10:57→20:11)
[2018-10-24] MEDS ORDERED: FLUTICASONE INH SCH ×2 (18:00→22:00)
[2018-10-24] MEDS ORDERED: SALMETEROL INH SCH ×2 (18:00→22:00)
[2018-10-25 05:00] VITALS: BP 123/79
[2018-10-25] MEDS: APAP/HYDROCODONE 325/5 TAB PO PRN (05:25)
[2018-10-25 08:02] VITALS: BP 122/87
[2018-10-25] MEDS ORDERED: PROPOFOL EMUL 10MG/ML 20 ML VL ONE (09:49)
[2018-10-25] MEDS ORDERED: DEXAMETHASONE SOD 4 MG/ML VIAL ONE (09:49)
[2018-10-25] MEDS ORDERED: fentaNYL CITR 100 MCG/2 ML AMP ONE (09:49)
[2018-10-25] MEDS ORDERED: ONDANSETRON 4 MG/2 ML VIAL ONE (09:49)
== END 2018-10-25 08:55 | disposition home or self-care (01) ==
LOC: OR 00:51 → MED 10:30
PROVIDERS: ADMIT Urology; ATTEND Urology
DX: N32.9 Bladder disorder, unspecified (principal); D75.1 Secondary polycythemia; I26.99 Other pulmonary embolism without acute cor pulmonale; F17.210 Nicotine dependence, cigarettes, uncomplicated; Z85.51 Personal history of malignant neoplasm of bladder; Z87.442 Personal history of urinary calculi; Z79.899 Other long term (current) drug therapy
CPT/HCPCS: 51720; 52214; 82365; 85025; 85610; 85730; 88300; 94640; A4346; A9270; G0378; J0690; J1100; J2405; J2704; J3010; J9280; 82040; 82247; 82310; 82374; 82435; 82565; 82947; 84075; 84132; 84155; 84295; 84450; 84460; 84520

== ENCOUNTER 2018-11-25 08:22 | Outpatient (RCR) | payer MEDICARE, OTHER ==
[2018-02-01 09:30] VITALS: BMI 24.9
[2018-09-09 13:07] VITALS: BP 143/79
[2018-09-09 13:17] LABS: PLATELET COUNT, AUTOMATED 215 K/uL (150-450)
[2018-09-09] MEDS: LIDOCAINE/SOD BICARB 8.4% SYR ID PRN (13:20)
[2018-09-09 13:56] VITALS: BP 120/76
[2018-09-10] MEDS: LIDOCAINE/SOD BICARB 8.4% SYR ID PRN (13:20)
[~2018-11-25 08:22] MED LIST changes: +DEXTROSE 5%(*) 100 ML BAG 100 ML IVPB PRN; -FAMOTIDINE 20 MG TAB PO ONE; -LIDOCAINE/SOD BICARB 8.4% SYR ID ONE; -MIDAZOLAM 2 MG/2 ML VIAL IVP PRN; -NORMOSOL R SOLN(*) 1000 ML BAG 1,000 ML IV PRN; +NS(*) 0.9% 100 ML BAG 100 ML IVPB PRN; -ceFAZolin(*) 1 GM VIAL 1 GM in NS(*) 0.9% 100 ML MINI-BAG 100 ML IVPB ONE
[2018-11-25 08:54] LABS: PLATELET COUNT, AUTOMATED 174 K/uL (150-450)
[2018-11-25 09:32] VITALS: BP 139/83
== END 2018-12-05 ==
LOC: SPU 08:22
PROVIDERS: ATTEND Internal Medicine Hematology
DX: C67.9 Malignant neoplasm of bladder, unspecified (principal)
CPT/HCPCS: 36415; 82040; 82247; 82310; 82374; 82435; 82565; 82728; 82947; 83090; 83540; 83550; 84075; 84132; 84155; 84295; 84450; 84460; 84520; 85025; 99195

== ENCOUNTER → 2019-01-29 | Outpatient (REF) | payer MEDICARE, OTHER ==
[2018-02-01 09:30] VITALS: BMI 24.9
[~2019-01-29] MED LIST changes: -DEXTROSE 5%(*) 100 ML BAG 100 ML IVPB PRN; -NS(*) 0.9% 100 ML BAG 100 ML IVPB PRN
== END ==
LOC: ZZSENDIN 12:00
PROVIDERS: ATTEND Urology
DX: L72.0 Epidermal cyst (principal); L81.4 Other melanin hyperpigmentation
CPT/HCPCS: 88305